=== PATIENT | female | born 1935 | race Caucasian/White ===

== ENCOUNTER → 2017-01-05 | Outpatient (CLI) | payer MEDICARE ==
--- NOTE | 2017-01-08 11:19 | MM ---
Reason for exam: additional evaluation requested from prior study. Last mammogram was performed 1 year ago. History: Patient is postmenopausal and has history of breast cancer at age 78. Family history of breast cancer in maternal aunt at age 60. Malignant MG pre op needle loc LT of the left breast, June 05, 2014. Malignant US biopsy breast VAD LT of the left breast, May 24, 2014. Taking antineoplastic for 5 months. Physical Findings: Nurse did not find any significant physical abnormalities on exam. MG Diagnostic Mammo w CAD MARILYN Bilateral CC and MLO view(s) were taken. Prior study comparison: January 03, 2016, bilateral MG 3d diag mammo w/cad MARILYN. January 01, 2015, bilateral MG diagnostic mammo w CAD MARILYN. May 24, 2014, left breast MG diagnostic mammo LT wo CAD. There are scattered fibroglandular densities. Post surgical and post therapy changes in left breast. Nodularity left MLO view represents nipple. These results were verbally communicated with the patient and result sheet given to the patient on 01/05/17. ASSESSMENT: Benign, BI-RAD 2 RECOMMENDATION: Follow-up diagnostic mammogram of both breasts in 1 year.
== END | disposition home or self-care (01) ==
LOC: RADMAMWWP 10:13
PROVIDERS: ATTEND Radiology Diagnostic Radiology
DX: C50.912 Malignant neoplasm of unspecified site of left female breast (principal)

== ENCOUNTER → 2017-07-08 | Outpatient (CLI) | payer MEDICARE ==
--- NOTE | 2017-07-08 10:51 | BD ---
EXAMINATION TYPE: MG DEXA axial skeleton. DATE OF EXAM: 07/08/2017 Comparison: DEXA bone scan 07/13/2015 CLINICAL HISTORY: Height: 62 inches Weight: 141 FRAX RISK QUESTIONS: Alcohol (3 or more units per day): no Family History (Parent hip fracture): no Glucocorticoids (More than 3mos): no (Ex: prednisone, prednisolone, methylprednisolone, dexamethasone, and hydrocortisone). History of Fracture in Adulthood: yes, September 2016 Secondary Osteoporosis: 1. Type 1 Diabetes: no 2. Hyperthyroidism: no 3. Menopause before 45: no 4. Malnutrition: no 5. Chronic liver disease: no Rheumatoid Arthritis: no Current Tobacco Use: no RISK FACTORS HISTORY OF: Family History of Osteoporosis: yes Active: yes Diet low in dairy products/other sources of calcium: somewhat...servings of cheese several times a w [place] Postmenopausal woman: yes Take estrogen and/or progesterone medications: no Lost more than 2 inches in height since high school: no Frequent falls: no Poor Health: no Hyperparathyroidism: no Adrenal Insufficiency: no MEDICATIONS: Prednisone or other steroids: no Thyroid Medications:no Osteoporosis Medications: yes Which medication: Prolia How Long: about one year Additional Medications: blood pressure , Metformin, Arimidex Additional History: breast CA age 78, diabetic, ankle pain EXAM MEASUREMENTS: Bone mineral densitometry was performed using the Vecast System. Bone mineral density as measured about the Lumbar spine is: ----- L1-L4(G/cm2): 0.967 T Score Values are as follows: ----- L2: -2.0 ----- L3: -1.9 ----- L4: -2.5 ----- L1-L4: -1.8 Bone mineral density has: Increased 2.5% since study of: 01/03/2016 Bone mineral density about the R hip (g/cm2): 0.900 Bone mineral density about the L hip (g/cm2): 0.888 T Score values are as follows: -----R Neck: -1.0 -----L Neck: -1.1 -----R Total: -0.8 -----L Total: -0.2 Bone mineral density has: Decreased -0.7% since study of: 01/03/2016 IMPRESSION: Osteopenia (T Score between -2.5 and -1 as noted by T score values in the low back and femoral neck l evel left hip. Bone density fairly stable from most recent prior. There remains slightly increased risk of fracture and the patient may be considered for treatment. Re-Screen 2-5 years. NOTE: T-SCORE=SD OF THE YOUNG ADULT MEAN.
== END | disposition home or self-care (01) ==
LOC: RADBDWWP 09:52
PROVIDERS: ATTEND Internal Medicine Hematology & Oncology
DX: C50.512 Malignant neoplasm of lower-outer quadrant of left female breast (principal); M85.89 Other specified disorders of bone density and structure, multiple sites
CPT/HCPCS: 77080

== ENCOUNTER → 2018-01-07 | Outpatient (CLI) | payer MEDICARE ==
--- NOTE | 2018-01-07 12:02 | MM ---
Reason for exam: additional evaluation requested from prior study. Last mammogram was performed 1 year ago. History: Patient is postmenopausal and has history of breast cancer at age 78. Family history of breast cancer in maternal aunt at age 60. Malignant MG pre op needle loc LT of the left breast, June 05, 2014. Malignant US biopsy breast VAD LT of the left breast, May 24, 2014. Taking antineoplastic for 5 months. Physical Findings: Nurse did not find any significant physical abnormalities on exam. MG 3D Diag Mammo W/Cad MARILYN Bilateral CC and MLO view(s) were taken. Prior study comparison: January 05, 2017, bilateral MG diagnostic mammo w CAD MARILYN. January 03, 2016, bilateral MG 3d diag mammo w/cad MARILYN. There are scattered fibroglandular densities. Finding #1: Architectural distortion in the upper outer quadrant, posterior position of the left breast. Finding #2: There are typically benign vascular, round calcifications in both breasts. There is no discrete abnormality. These results were verbally communicated with the patient and result sheet given to the patient on 01/07/18. ASSESSMENT: Benign, BI-RAD 2 RECOMMENDATION: Follow-up diagnostic mammogram of both breasts in 1 year.
== END | disposition home or self-care (01) ==
LOC: RADMAMWWP 10:17
PROVIDERS: ATTEND Radiology Diagnostic Radiology
DX: C50.912 Malignant neoplasm of unspecified site of left female breast (principal)
CPT/HCPCS: 77066; G0279; 77062

== ENCOUNTER → 2018-07-09 | Outpatient (CLI) | payer MEDICARE ==
--- NOTE | 2018-07-09 14:19 | BD ---
EXAMINATION TYPE: Axial Bone Density DATE OF EXAM: 07/09/2018 COMPARISON: Prior DEXA bone scan July 08, 2017 CLINICAL HISTORY: Postmenopausal female with history of breast cancer Height: 62 Weight: 146.3 FRAX RISK QUESTIONS: Alcohol (3 or more units per day): no Family History (Parent hip fracture): no Glucocorticoids (More than 3mos): no (Ex: prednisone, prednisolone, methylprednisolone, dexamethasone, and hydrocortisone). History of Fracture in Adulthood: yes Secondary Osteoporosis: 1. Type 1 Diabetes: no 2. Hyperthyroidism: no 3. Menopause before 45: marvel 4. Malnutrition: no 5. Chronic liver disease: no Rheumatoid Arthritis: no Current Tobacco Use: no RISK FACTORS HISTORY OF: Family History of Osteoporosis: no Active: yes Diet low in dairy products/other sources of calcium: no Postmenopausal woman: around age 51 Lost more than 2 inches in height since high school: no MEDICATIONS: Lipitor, Prilosec, Arimidex, lisinopril, xanax, metoprolol, metformin, Osteoporosis Medications: Prolia How Lon years Additional History: EXAM MEASUREMENTS: Bone mineral densitometry was performed using the Poynt System. Bone mineral density as measured about the Lumbar spine is: ----- L1-L4(G/cm2): 0.980 T Score Values are as follows: ----- L2: -1.3 ----- L3: -1.9 ----- L4: -2.1 ----- L1-L4: -1.7 Bone mineral density has: increased 4.0 % since study of: 07.08.2017 Bone mineral density about the R hip (g/cm2): 0.896 Bone mineral density about the L hip (g/cm2): 0.959 T Score values are as follows: -----R Neck: -1.0 -----L Neck: -0.6 -----R Total: -0.5 -----L Total: 0.2 Bone mineral density has: increased 4.9 % since study of: 07.08.2017 IMPRESSION: Osteopenia (T Score between -2.5 and -1) remains present. Bone density is increased from prior. There remains slightly increased risk of fracture and the patient may be considered for treatment. Re-Screen 2-5 years. NOTE: T-SCORE=SD OF THE YOUNG ADULT MEAN.
== END ==
LOC: RADBDWWP 12:21
PROVIDERS: ATTEND Internal Medicine Hematology & Oncology
DX: M85.88 Other specified disorders of bone density and structure, other site (principal); C50.512 Malignant neoplasm of lower-outer quadrant of left female breast
CPT/HCPCS: 77080

== ENCOUNTER → 2019-01-03 | Outpatient (CLI) | payer MEDICARE ==
--- NOTE | 2019-01-03 11:53 | MM ---
Reason for exam: additional evaluation requested from prior study. Last mammogram was performed 1 year ago. History: Patient is postmenopausal and has history of breast cancer at age 78. Family history of breast cancer in maternal aunt at age 60. Malignant MG pre op needle loc LT of the left breast, June 05, 2014. Malignant US biopsy breast VAD LT of the left breast, May 24, 2014. Lumpectomy of the left breast, 2013. Radiation therapy of the left breast, 2013. Taking antineoplastic for 5 years. Physical Findings: Nurse did not find any significant physical abnormalities on exam. MG 3D Diag Mammo W/Cad MARILYN Bilateral CC and MLO view(s) were taken. Prior study comparison: January 07, 2018, bilateral MG 3d diag mammo w/cad MARILYN. January 05, 2017, bilateral MG diagnostic mammo w CAD MARILYN. There are scattered fibroglandular densities. Post surgical and post therapy changes left breast. No significant new findings when compared with previous films. These results were verbally communicated with the patient and result sheet given to the patient on 01/03/19. ASSESSMENT: Benign, BI-RAD 2 RECOMMENDATION: Routine screening mammogram of both breasts in 1 year.
== END | disposition home or self-care (01) ==
LOC: RADMAMWWP 10:27
PROVIDERS: ATTEND Radiology Diagnostic Radiology
DX: C50.512 Malignant neoplasm of lower-outer quadrant of left female breast (principal)
CPT/HCPCS: 77066; G0279; 77062

== ENCOUNTER → 2020-04-19 | Outpatient (CLI) | payer MEDICARE ==
--- NOTE | 2020-04-19 11:46 | MM ---
Reason for exam: additional evaluation requested from prior study. Last mammogram was performed 1 year and 3 months ago. History: Patient is postmenopausal and has history of breast cancer at age 78. Family history of breast cancer in maternal aunt at age 60. Malignant MG pre op needle loc LT of the left breast, June 05, 2014. Malignant US biopsy breast VAD LT of the left breast, May 24, 2014. Lumpectomy of the left breast, 2013. Radiation therapy of the left breast, 2013. Taking antineoplastic for 5 years. Physical Findings: Nurse did not find any significant physical abnormalities on exam. MG 3D Diag Mammo W/Cad MARILYN Bilateral CC and MLO view(s) were taken. Prior study comparison: January 03, 2019, bilateral MG 3d diag mammo w/cad MARILYN. January 07, 2018, bilateral MG 3d diag mammo w/cad MARILYN. There are scattered fibroglandular densities. Redemonstrated post surgical and post therapy changes left breast. No significant new findings when compared with previous films. These results were verbally communicated with the patient and result sheet given to the patient on 04/19/20. ASSESSMENT: Benign, BI-RAD 2 RECOMMENDATION: Routine screening mammogram of both breasts in 1 year.
== END | disposition home or self-care (01) ==
LOC: RADMAMWWP 10:43
PROVIDERS: ATTEND Internal Medicine Hematology & Oncology
DX: Z08 Encounter for follow-up examination after completed treatment for malignant neoplasm (principal); Z85.3 Personal history of malignant neoplasm of breast
CPT/HCPCS: 77066; G0279; 77062

== ENCOUNTER → 2020-07-10 | Outpatient (CLI) | payer MEDICARE ==
--- NOTE | 2020-07-10 14:17 | BD ---
EXAMINATION TYPE: Axial Bone Density DATE OF EXAM: 07/10/2020 COMPARISON: 07/08/2017 CLINICAL HISTORY: Height: 61.5 IN Weight: 139 LBS FRAX RISK QUESTIONS: History of Fracture in Adulthood: RT ANKLE FX AGE 80 RISK FACTORS HISTORY OF: Active: YES Postmenopausal woman: PARTIAL HYST AGE 51 MEDICATIONS: Osteoporosis Medications: NOT NOW Which medication: Prolia How Long: TOOK FOR 5 YEARS. STOPPED IN 2019 Additional Medications: VIT E, Additional History: BREAST CANCER WITH RADIATION EXAM MEASUREMENTS: Bone mineral densitometry was performed using the HipSnip System. Bone mineral density as measured about the Lumbar spine is: ----- L1-L4(G/cm2): 0.991 T Score Values are as follows: ----- L2: -1.1 ----- L3: -1.5 ----- L4: -2.4 ----- L1-L4: -1.6 Bone mineral density has: Increased 5.3% since study of: 07/08/2017 Bone mineral density about the R hip (g/cm2): 0.845 Bone mineral density about the L hip (g/cm2): 0.897 T Score values are as follows: -----R Neck: -1.4 -----L Neck: -1.0 -----R Total: -0.7 -----L Total: -0.1 Bone mineral density has: Increased 1.5% since study of: 07/08/2017 IMPRESSION: Osteopenia (T Score between -2.5 and -1). There is slightly increased risk of fracture and the patient may be considered for treatment. Re-Screen 2-5 years. NOTE: T-SCORE=SD OF THE YOUNG ADULT MEAN.
== END | disposition home or self-care (01) ==
LOC: RADBDWWP 10:35
PROVIDERS: ATTEND Internal Medicine Hematology & Oncology
DX: M85.88 Other specified disorders of bone density and structure, other site (principal); M89.9 Disorder of bone, unspecified
CPT/HCPCS: 77080

== ENCOUNTER → 2021-11-01 | Outpatient (CLI) | payer MEDICARE ==
--- NOTE | 2021-11-05 08:29 | MM ---
Reason for exam: screening (asymptomatic). Last mammogram was performed 1 year and 6 months ago. History: Patient is postmenopausal and has history of breast cancer at age 78. Family history of breast cancer in maternal aunt at age 60. Malignant MG pre op needle loc LT of the left breast, June 05, 2014. Malignant US biopsy breast VAD LT of the left breast, May 24, 2014. Lumpectomy of the left breast, 2013. Radiation therapy of the left breast, 2013. Taking antineoplastic for 5 years. Physical Findings: A clinical breast exam by your physician is recommended on an annual basis and results should be correlated with mammographic findings. MG 3D Screening Mammo W/Cad Bilateral CC and MLO view(s) were taken. XCCL view(s) were taken of the left breast. Prior study comparison: April 19, 2020, bilateral MG 3d diag mammo w/cad MARILYN. January 03, 2019, bilateral MG 3d diag mammo w/cad MARILYN. There are scattered fibroglandular densities. Redemonstrated post surgical change left breast. New grouped calcifications central right breast, magnification views recommended. ASSESSMENT: Incomplete: need additional imaging evaluation, BI-RAD 0 RECOMMENDATION: Special view mammogram of the right breast. (magnification) [facility] will attempt to contact patient to return for supplemental views.
== END | disposition home or self-care (01) ==
LOC: RADMAMWWP 13:38
PROVIDERS: ATTEND Internal Medicine Hematology & Oncology
DX: Z12.31 Encounter for screening mammogram for malignant neoplasm of breast (principal); Z78.0 Asymptomatic menopausal state; Z80.3 Family history of malignant neoplasm of breast; Z85.3 Personal history of malignant neoplasm of breast
CPT/HCPCS: 77063; 77067

== ENCOUNTER → 2021-11-08 | Outpatient (CLI) | payer MEDICARE ==
--- NOTE | 2021-11-13 10:16 | MM ---
Reason for exam: additional evaluation requested from abnormal screening. Last mammogram was performed less than 1 month ago. History: Patient is postmenopausal and has history of breast cancer at age 78. Family history of breast cancer in maternal aunt at age 60. Malignant MG pre op needle loc LT of the left breast, June 05, 2014. Malignant US biopsy breast VAD LT of the left breast, May 24, 2014. Lumpectomy of the left breast, 2013. Radiation therapy of the left breast, 2013. Taking antineoplastic for 5 years. Physical Findings: A clinical breast exam by your physician is recommended on an annual basis and results should be correlated with mammographic findings. MG 3D Work Up W/Cad RT CC with magnification, LM with magnification, and LM view(s) were taken of the right breast. Prior study comparison: November 01, 2021, bilateral MG 3d screening mammo w/cad. April 19, 2020, bilateral MG 3d diag mammo w/cad MARILYN. January 03, 2019, bilateral MG 3d diag mammo w/cad MARILYN. Finding: There is a 1.5cm heterogeneous, grouped/clustered calcifications in the upper quadrant, anterior position middle of the right breast. New finding since April 19, 2020. ASSESSMENT: Suspicious, BI-RAD 4 RECOMMENDATION: Stereotactic core biopsy of both breasts. Called Dr. Alicea's office with mammographic findings and has scheduled an appointment for the patient for 11/28/21 at 7:[address] Cabrera. Biopsy scheduled for 11/28/21 at 8:00. PRELIMINARY REPORT CALLED AND FAXED TO DR. CABRERA ON 11/13/21.
== END | disposition home or self-care (01) ==
LOC: RADMAMWWP 13:33
PROVIDERS: ATTEND Internal Medicine Hematology & Oncology
DX: R92.1 Mammographic calcification found on diagnostic imaging of breast (principal); Z85.3 Personal history of malignant neoplasm of breast; Z80.3 Family history of malignant neoplasm of breast; Z78.0 Asymptomatic menopausal state
CPT/HCPCS: 77065; G0279; 77061

== ENCOUNTER → 2021-11-28 | Day surgery (SDC) | payer MEDICARE ==
[2021-11-28 07:42] VITALS: RESP 16
[2021-11-28 08:58] VITALS: BP 119/72; PULSE 83; TEMP 98.6
--- NOTE | 2021-11-28 14:10 | MM ---
The patient is an 86-year-old white female seen with her daughter; the patient on routine screening mammogram was noted to have 1.5 cm area of calcifications in the upper inner quadrant of the right breast. Stereotactic core biopsy was recommended. Risks and benefits of the procedure as well as alternatives were discussed with the patient and her daughter. Risks include but are not limited to bleeding, infection, reaction to the anesthetic. Alternatives such as watchful waiting or resection in the operating room were discussed but not recommended. They understood and wished to proceed. The patient was taken to the stereotactic core biopsy room. She was positioned prone on the lo-rad table. A CC from above approach was utilized. A aquatic director film was obtained. The calcifications of concern were identified. These were targeted. The breast was prepped using Betadine. 20 mL of 1% lidocaine were used to anesthetize the area of concern. A 9-gauge vacuum-assisted core rotating biopsy needle was driven to the correct coordinates. A prefire film was obtained. The needle was noted to be in the correct location. The needle was fired. Post fire film was obtained which showed the needle to be in the correct location. 13 core specimens were obtained. Radiograph of the specimen revealed the calcifications of concern had been adequately sampled. A secure julian top hat clip was placed. The clip appeared to be in the correct location. The patient tolerated procedure in stable condition. A post stereotactic core biopsy radiograph revealed the clip to be in the correct location. [facility] CENTERDavid
== END ==
LOC: RADMAMWWP 07:12
PROVIDERS: ATTEND Surgery
DX: D05.11 Intraductal carcinoma in situ of right breast (principal)
CPT/HCPCS: 19081; 88305; 88342; 88341; A4648; J2001

== ENCOUNTER → 2021-12-05 | Outpatient (CLI) | payer MEDICARE ==
[2021-12-05 09:02] VITALS: BP 97/62; PULSE 104; RESP 18; TEMP 97.8
--- NOTE | 2021-12-05 09:35 | P.PN ---
Subjective Progress Note Date: 12/05/21 Principal diagnosis: right breast DCIS Pearl is an 86 year old white female seen in consultation for DR. Alicea with an abnormal right breast mammogram. She underwent a lumpectomy about 7 years ago for what she believes was a stage I invasive ductal carcinoma. She was treated with radiation therapy and completed a five-year course of anti- hormone therapy. She does not feel any lumps masses or nodules of concern in either breast at this time. She had a routine mammogram performed on which revealed a 1.5 cm heterogeneous area of grouped/clustered calcifications in the upper quadrant anterior position of the right breast. She had not had mammograms for several years secondary to COVID. hormones: none BCP: none caffiene: none nicotine: stopped 33 years ago, used to smoke 1 PPD for about 20 years The patient on 11-28-21 underwent a right breast stereotactic core biopsy. This was positive for DCIS high-grade. The lesion is approximately 2 cm in size. At had a long discussion with the patient and her daughter regarding treatment options. The patient would like to have a lumpectomy. We have discussed sentinel node biopsy and secondary to the high grade of the lesion and the size of the tumor she would like to have a sentinel node biopsy possible axillary node dissection performed. Family History: patient: left breast cancer materanl aunt: breast cancer Hormonal History: menarche: 14 , breast fed: no, age at first : 22 menopause: 51 Surgical History: heart valve replacement 2013 left breast lumpectomy 2013 carotid stint (eliquis and plavix) hysterectomy no cancer, left ovaries Medical History: kidney stones ischemic colitis COPD Edge's esophagus Social History: nicotine: stopped 33 years ago alcohol: none drugs:none - Constitutional Constitutional: Denies chills, Denies fever - EENT Comment: cataract surgery Eyes: denies blurred vision, denies pain Ears: deny: decreased hearing, tinnitus Ears, nose, mouth and throat: Denies headache, Denies sore throat - Breasts Breasts: bilateral: as per HPI - Cardiovascular Cardiovascular: Reports as per HPI - Respiratory Comment: COPD - Gastrointestinal Comment: ischemic colitis Gastrointestinal: Reports as per HPI - Genitourinary (Female) Genitourinary: Reports kidney stones - Menstruation Menstruation: Reports post hysterectomy - Musculoskeletal Musculoskeletal: Denies myalgias - Integumentary Integumentary: Denies pruritus, Denies rash - Neurological Neurological: Denies numbness, Denies weakness - Psychiatric Psychiatric: Denies anxiety, Denies depression - Endocrine Endocrine: Denies fatigue, Denies weight change - Hematologic/Lymphatic Comment: eliquis, plavix Hematologic/Lymphatic: Reports as per HPI - Allergic/Immunologic Allergic/Immunologic: Reports as per HPI Objective - Vital Signs Vital signs: Vital Signs Temp 97.8 F 12/05/21 08:59 Pulse 104 H 12/05/21 08:59 Resp 18 12/05/21 08:59 BP 97/62 12/05/21 08:59 Pulse Ox 96 12/05/21 08:59 Intake & Output 12/04/21 12/05/21 12/05/21 18:59 06:59 18:59 Weight 61.235 kg - Constitutional General appearance: Present: cooperative - EENT ENT: Present: hearing grossly normal - Neck Neck: Present: normal ROM - Respiratory Respiratory: bilateral: CTA - Cardiovascular Heart sounds: normal: S1, S2 - Integumentary Integumentary Comment(s): mild echymosis and hematoma at biopsy site - Musculoskeletal Musculoskeletal: Present: gait normal - Psychiatric Psychiatric: Present: A&O x's 3, appropriate affect, intact judgment & insight Assessment and Plan Assessment: Impression: heart valve replacement 2012 left breast lumpectomy 2014 carotid stint (eliquis and plavix) hysterectomy no cancer, left ovaries Medical History: kidney stones 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 Castro Clearance from cardiology recommended per Dr. Matthew Avelar as per cardiology/Dr. Wong Risk and benefits of the procedures are discussed with the patient and her daughter. Risks include but are not limited to bleeding, infection, reaction to the anesthetic. If the margins were to be positive and further resection may be needed. If the sentinel node were to be highly suspicious and found to be positive for cancer and axillary dissection were to be performed risks of lymphedema, injury to the thoracodorsal and long thoracic nerves, numbness of the inner arm are discussed. The possibility of injection of methylene blue was also discussed. Dr. Wong
== END ==
LOC: WWCWWP 08:41
PROVIDERS: ATTEND Surgery
DX: R92.8 Other abnormal and inconclusive findings on diagnostic imaging of breast (principal); Z98.890 Other specified postprocedural states; Z95.5 Presence of coronary angioplasty implant and graft; Z79.01 Long term (current) use of anticoagulants; Z87.891 Personal history of nicotine dependence; Z88.5 Allergy status to narcotic agent; Z88.8 Allergy status to other drugs, medicaments and biological substances

== ENCOUNTER → 2021-12-24 | Day surgery (SDC) | payer MEDICARE ==
[2021-12-20 13:46] VITALS: BMI 25.2
[~2021-12-24] MED LIST: ALPRAZolam 0.25 MG TAB ONE; DEXAMETHASONE SOD PHOSPHATE 4 MG/ML 1 ML VIAL IV ONE; HEPARIN SODIUM,PORCINE/PF 5,000 UNIT/0.5 ML SYRINGE SQ PRN; HYDROmorphone 0.5 MG/0.5 ML SYRINGE IVP PRN; LACTATED RINGERS 1,000 ML IV ONE; LACTATED RINGERS 1,000 ML IV SCH; LIDOCAINE 1% (10MG/ML) FOR IV START INTRADERMA PRN; LIDOCAINE 1% INJ 10MG/ML (20 ML MDV) SQ ONE; LIDOCAINE 2% INJ 20 MG/ML (2 ML VIAL) ONE; METOCLOPRAMIDE 5 MG/ML 2 ML VIAL IVP PRN; MIDAZOLAM 2 MG/2 ML VIAL IV PRN; ONDANSETRON 4 MG/2 ML VIAL IVP PRN; PROPOFOL 10 MG/ML 20 ML VIAL IV ONE; Pre Op ABX Message 1 EACH MISC MISCELLANE ONE; SODIUM CHLORIDE 0.9% 100 ML with ceFAZolin 2,000 MG IV ONE; SUCCINYLCHOLINE CHLORIDE 100 MG/5 ML SYR IV ONE; ePHEDrine 50 MG/ML 1 ML VIAL ONE; fentaNYL (PF) 50 MCG/ML 2 ML AMP ONE
[2021-12-24 08:34] LABS: Glucose,Whole Blood 102 mg/dL (75-99)
--- NOTE | 2021-12-24 11:12 | P.OP ---
Date of Procedure: 12/24/21 Preoperative Diagnosis: DCIS right breast Postoperative Diagnosis: same Procedure(s) Performed: Right breast needle localization lumpectomy, onco-plastic tissue transfer 40 cm Anesthesia: CESARA Surgeon: Luli Bonner Estimated Blood Loss (ml): 5 IV fluids (ml): 400 Pathology: other (breast tissue) Condition: stable Disposition: same day Indications for Procedure: Biopsy-proven DCIS right breast Operative Findings: Fibrofatty breast tissue Description of Procedure: Following needle localization of the area of concern in the radiology suite the patient was brought to the operating room. Following induction of anesthesia the right breast was prepped and draped in sterile fashion. An incision was made and carried down to the THE needle. Surrounding tissue was excised. The cavity was 5 x 3 cm for 15 cm, the specimen was painted for orientation. Titanium clips were placed after assured that hemostasis was attained in the biopsy cavity. An inferior pillar which was 5 x 3 cm in size was developed. A superior pillar which was 5 x 2 cm in size was developed as well. The pillars were brought together to close the defect. They were secured with 3-0 Vicryl suture. The tissue mobalize was 40 cm2. The subcutaneous tissue was closed using 3-0 Vicryl suture. The skin was closed using 4-0 Monocryl. Steri-Strips were applied. 10 mL of 1% lidocaine was injected into the area of the incision. The patient tolerated the procedure in stable condition. Radiograph of the specimen revealed the area of concern about removed. All instrument and sponge counts were correct at the end of the case.
--- NOTE | 2021-12-24 11:13 | P.PN ---
Progress Note - Text Progress Note Date: 12/24/21 This is an addendum to the history and physical. The patient is not going to have a sentinel node injection or sentinel node biopsy. We have discussed this and the patient understands and although she initially wished this to be done after further explanation she canceled this portion of the procedure.
--- NOTE | 2021-12-24 11:17 | P.DS ---
Providers Attending physician: Luli Bonner Primary care physician: Alban Wong Plan - Discharge Summary Discharge Rx Participant: No New Discharge Prescriptions: No Action Cholecalciferol [Vitamin D3] 4,000 unit PO DAILY ALPRAZolam [Xanax] 12.5 mg PO TID PRN PRN Reason: Anxiety Clopidogrel [Plavix] 75 mg PO DAILY Omeprazole 20 mg PO DAILY Montelukast [Singulair] 10 mg PO HS Dicyclomine [Bentyl] 20 mg PO BID Atorvastatin [Lipitor] 40 mg PO HS lisinopriL [Zestril] 5 mg PO BID Apixaban [Eliquis] 2.5 mg PO BID Ferrous Sulfate [Feosol] 325 mg PO DAILY Discharge Medication List ALPRAZolam [Xanax] 12.5 mg PO TID PRN 06/02/14 [History] Cholecalciferol [Vitamin D3] 4,000 unit PO DAILY 06/02/14 [History] Apixaban [Eliquis] 2.5 mg PO BID 11/12/21 [History] Atorvastatin [Lipitor] 40 mg PO HS 11/12/21 [History] Clopidogrel [Plavix] 75 mg PO DAILY 11/12/21 [History] Dicyclomine [Bentyl] 20 mg PO BID 11/12/21 [History] Montelukast [Singulair] 10 mg PO HS 11/12/21 [History] lisinopriL [Zestril] 5 mg PO BID 11/12/21 [History] Ferrous Sulfate [Feosol] 325 mg PO DAILY 12/20/21 [History] Omeprazole 20 mg PO DAILY 12/20/21 [History] Follow up Appointment(s)/Referral(s): Luli Bonner MD [STAFF PHYSICIAN] - 01/03/22 12:00 pm Activity/Diet/Wound Care/Special Instructions: wear bra at all times do not drive may shower after 48 hours Discharge Disposition: HOME SELF-CARE
--- NOTE | 2021-12-24 11:19 | P.NAPBC ---
NAPBC Queries - NAPBC Queries Was patient's case review presented at [facility] tumor board? If no, comment.: Yes Was patient's pathology reviewed at [facility]? If no, comment.: Yes Was breast conservation surgery offered? If no, comment.: Yes Was sentinel node biopsy offered? If no, comment.: Yes (did not do seconodary to DCIS and age of patient) Was diagnosis confirmed by percutaneous core biopsy? If no, comment.: Yes Is patient mastectomy patient?: No Was a preop referral to reconstructive surgeon offered?: No Clinical Stage: stage 0
--- NOTE | 2021-12-24 11:39 | MM ---
EXAMINATION TYPE: MG pre op needle loc RT, MG surgical specimen RT DATE OF EXAM: 12/24/2021 COMPARISON: Prior stereotactic guided core biopsy November 28, 2021 and older studies CLINICAL HISTORY: Abnormal biopsy with high-grade DCIS TECHNIQUE: Needle localization with wire placement and surgical excision of area of concern in the ri t breast. FINDINGS: The procedure of needle localization with wire placement and than surgical excision was exp lained to the patient. Benefits, alternatives, and risks were discussed. An informed consent was th en obtained. The shortest pathway for procedure was chosen. Shortest pathway was medial approach. The overlying s kin was prepped and draped in usual sterile fashion. Lidocaine is used as anesthetic into the skin an d subcutaneous tissue up to the level of area of concern. A 5 cm needle was used. It was placed via a medial to lateral approach under mammographic guidance. Subsequent 90 degrees mammogram show the needle to be in satisfactory position relative to the targeted area. At this point, wire was placed and the needle was withdrawn. The wire was fixed to patient's skin. Images were marked for surgeon. The patient tolerated the procedure well without any immediate complication. The patient was kept in the radiology department for short stay after the procedure and then taken to surgery for surgical e xcision. Targeted biopsy clip and wire are identified in specimen mammogram. The patient was kept i hospital for short stay after the procedure and then discharged home in stable condition. IMPRESSION: Successful, uncomplicated needle localization with wire placement and surgical excision o f targeted biopsy clip in the right breast, full pathology results to follow.
[2021-12-24 11:58] VITALS: TEMP 97
[2021-12-24 12:48] VITALS: RESP 20
[2021-12-24 12:55] LABS: Glucose,Whole Blood 142 mg/dL (75-99)
[2021-12-24 13:06] VITALS: BP 181/78; PULSE 86
== END | disposition home or self-care (01) ==
LOC: OR 07:32
PROVIDERS: ATTEND Surgery
DX: D05.11 Intraductal carcinoma in situ of right breast (principal); Z79.01 Long term (current) use of anticoagulants; Z79.02 Long term (current) use of antithrombotics/antiplatelets; Z79.899 Other long term (current) drug therapy; I25.10 Atherosclerotic heart disease of native coronary artery without angina pectoris; I10 Essential (primary) hypertension; E78.5 Hyperlipidemia, unspecified; I48.91 Unspecified atrial fibrillation; Z86.73 Personal history of transient ischemic attack (TIA), and cerebral infarction without residual deficits; K21.9 Gastro-esophageal reflux disease without esophagitis; Z95.5 Presence of coronary angioplasty implant and graft; Z99.81 Dependence on supplemental oxygen
CPT/HCPCS: 19301; 14001; 88307; 76098; 19281; C1819; J1100; J2405; J0690; J2001 ×2; J3010; J0330; J2704; J1644

== ENCOUNTER → 2022-05-08 | Outpatient (CLI) | payer MEDICARE ==
[2022-05-08 10:43] VITALS: RESP 16
[2022-05-08 10:48] VITALS: BP 128/75; PULSE 64; TEMP 98.4
--- NOTE | 2022-05-08 11:00 | P.PN ---
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 Alicea with an abnormal right breast mammogram. Of importance is the fact she underwent a left breast lumpectomy about [address] Enamorado for what she believes was a stage I invasive ductal carcinoma. She was treated with radiation therapy and completed a five-year course of anti- hormone therapy. She does not feel any lumps masses or nodules of concern in either breast at this time. She had a routine mammogram performed on which revealed a 1.5 cm heterogeneous area of grouped/clustered calcifications in the upper quadrant anterior position of the right breast. She had not had mammograms for several years secondary to COVID. A right breast core biopsy was done which revealed DCIS on 11-28-21. She underwent a lumpectomy on 12-24-21, all margins were (-) She was ER-Pr-. A complaint of any new lumps masses or nodules of concern in either breast. She is due for a right breast mammogram at this time. hormones: none BCP: none caffiene: none nicotine: stopped 33 years ago, used to smoke 1 PPD for about 20 years Family History: patient: left breast cancer materanl aunt: breast cancer Hormonal History: menarche: 14 , breast fed: no, age at first : 22 menopause: 51 Surgical History: heart valve replacement 2012 left breast lumpectomy 2013 carotid stint (eliquis and plavix) hysterectomy no cancer, left ovaries Medical History: kidney stones ischemic colitis COPD Edge's esophagus Social History: nicotine: stopped 33 years ago alcohol: none drugs:none - Constitutional Constitutional: Denies chills, Denies fever - EENT Comment: cataract surgery Eyes: denies blurred vision, denies pain Ears: deny: decreased hearing, tinnitus Ears, nose, mouth and throat: Denies headache, Denies sore throat - Breasts Breasts: bilateral: as per HPI - Cardiovascular Cardiovascular: Reports as per HPI - Respiratory Comment: COPD - Gastrointestinal Comment: ischemic colitis Gastrointestinal: Reports as per HPI - Genitourinary (Female) Genitourinary: Reports kidney stones - Menstruation Menstruation: Reports post hysterectomy - Musculoskeletal Musculoskeletal: Denies myalgias - Integumentary Integumentary: Denies pruritus, Denies rash - Neurological Neurological: Denies numbness, Denies weakness - Psychiatric Psychiatric: Denies anxiety, Denies depression - Endocrine Endocrine: Denies fatigue, Denies weight change - Hematologic/Lymphatic Comment: eliquis, plavix Hematologic/Lymphatic: Reports as per HPI - Allergic/Immunologic Allergic/Immunologic: Reports as per HPI Past Medical History Past Medical History: Asthma, COPD, Diabetes Mellitus, GERD/Reflux, Hyperlipidemia, Hypertension Additional Past Medical History / Comment(s): HX OF ANEMIA, BARRETTS ESOPHAGUS. History of Any Multi-Drug Resistant Organisms: None Reported Past Surgical History: Heart Catheterization, Hysterectomy Additional Past Surgical History / Comment(s): PARTIAL HYSTERECTOMY, AORTIC HEART VALVE (JUL 2013) Past Anesthesia/Blood Transfusion Reactions: No Reported Reaction Past Psychological History: No Psychological Hx Reported Past Alcohol Use History: None Reported Past Drug Use History: None Reported Medications and Allergies Home Medications Medication Instructions Recorded Confirmed Type ALPRAZolam [Xanax] 0.25 mg PO HS PRN 06/02/14 11/28/21 History Atorvastatin [Lipitor] 20 mg PO HS 06/02/14 11/28/21 History Cholecalciferol [Vitamin D3] 2,000 unit PO DAILY 06/02/14 11/28/21 History Iron(Unknown Dose) 325 mg PO DAILY 06/02/14 11/28/21 History Apixaban [Eliquis] 2.5 mg PO BID 11/12/21 11/28/21 History Atorvastatin [Lipitor] 40 mg PO HS 11/12/21 11/28/21 History Clopidogrel [Plavix] 75 mg PO DAILY 11/12/21 11/28/21 History Dicyclomine [Bentyl] 20 mg PO BID 11/12/21 11/28/21 History Montelukast [Singulair] 10 mg PO DAILY 11/12/21 11/28/21 History Pantoprazole [Protonix] 40 mg PO DAILY 11/12/21 11/28/21 History lisinopriL [Zestril] 5 mg PO BID 11/12/21 11/28/21 History Allergies Allergy/AdvReac Type Severity Reaction Status Date / Time alcohol Allergy Severe Swelling Verified 11/28/21 07:27 of throat and lips morphine Allergy Unknown Passed Out Verified 11/28/21 07:27 Objective - Vital Signs Vital signs: Vital Signs Temp Pulse Resp 16 05/08/22 10:40 BP Pulse Ox FiO2 - Exam BMI: 24.7 - Constitutional General appearance: Present: cooperative - EENT Eyes: Present: EOMI ENT: Present: hearing grossly normal - Neck Neck: Present: normal ROM - Respiratory Respiratory: bilateral: CTA - Cardiovascular Rhythm: regular Heart sounds: normal: S1, S2 - Gastrointestinal General gastrointestinal: Present: soft - Integumentary Integumentary: Present: normal turgor - Musculoskeletal Musculoskeletal: Present: gait normal - Psychiatric Psychiatric: Present: A&O x's 3, appropriate affect, intact judgment & insight - Additional findings Additional findings: Breast Exam: BRA; 44C; asymmetry related to prior left breast lumpectomy Inspection: Asymmetry of the breast related to prior left breast lumpectomy Palpation: Right breast: Well-healed scar from prior lumpectomy, multiple positional exam fibrocystic changes no dominant masses or nodules of concern Right axilla: No adenopathy of concern Left breast: Postop and radiation changes, no dominant masses or nodules of concern Left axilla: No adenopathy of concern Assessment and Plan Assessment: Impression: kidney stones ischemic colitis COPD Edge's esophagus right breast DCIS no recurrence left breast stage I invasive ductal cancer no recurrence Plan: Bilateral mammogram October-2022 right breast mammogram at this time and follow up after this is done CC: Dr. Alban Wong
== END ==
LOC: WWCWWP 10:07
PROVIDERS: ATTEND Surgery
DX: Z08 Encounter for follow-up examination after completed treatment for malignant neoplasm (principal); Z85.3 Personal history of malignant neoplasm of breast; K22.70 Barrett's esophagus without dysplasia; K55.9 Vascular disorder of intestine, unspecified; N20.0 Calculus of kidney; J44.9 Chronic obstructive pulmonary disease, unspecified; E11.9 Type 2 diabetes mellitus without complications; E78.5 Hyperlipidemia, unspecified; I10 Essential (primary) hypertension; K21.9 Gastro-esophageal reflux disease without esophagitis; Z79.899 Other long term (current) drug therapy; Z87.891 Personal history of nicotine dependence; Z88.5 Allergy status to narcotic agent; Z88.8 Allergy status to other drugs, medicaments and biological substances

== ENCOUNTER → 2022-05-21 | Outpatient (CLI) | payer MEDICARE ==
--- NOTE | 2022-05-21 13:30 | MM ---
Reason for Exam: Follow-up at short interval from prior study. Last screening mammogram was performed 6 month(s) ago. Patient History: Menarche at age 13. First Full-Term at age 22. Hysterectomy at age 62. Postmenopausal. Breast cancer, right, age 86. Breast cancer, left, age 78. Previous chest radiation therapy at age 78. 12/24/2021, Lumpectomy on the Right side. 2013, Lumpectomy on the Left side. 12/24/2021, Malignant Core Biopsy on the right side. 11/28/2021, Malignant Core Biopsy on the right side. 06/05/2014, Malignant Core Biopsy on the left side. 05/24/2014, Malignant Core Biopsy on the left side. 2013, Radiation Therapy on the left side. Maternal aunt had breast cancer, age 60. Prior Study Comparison: 04/19/2020 Bilateral Diagnostic Mammogram, [facility]. 11/01/2021 Bilateral Screening Mammogram, [facility]. 11/08/2021 Right Diagnostic Mammogram, [facility]. Tissue Density: Right: The breast tissue is heterogeneously dense. This may lower the sensitivity of mammography. Findings: Analyzed By CAD. New distortion excisional changes in the right breast with surgical clips. Benign-appearing right axillary lymph nodes redemonstrated. Benign-appearing vascular calcification right breast redemonstrated. No suspicious new mass or group of microcalcification within the right breast. Overall Assessment: Benign, BI-RAD 2 Management: Screening Mammogram of both breasts in 6 months. Back on schedule. Results were given to the patient verbally at the time of exam. Electronically signed and approved by: Yassine Pandey M.D.
== END | disposition home or self-care (01) ==
LOC: RADMAMWWP 12:38
PROVIDERS: ATTEND Surgery
DX: Z08 Encounter for follow-up examination after completed treatment for malignant neoplasm (principal); Z85.3 Personal history of malignant neoplasm of breast; Z80.3 Family history of malignant neoplasm of breast; R92.1 Mammographic calcification found on diagnostic imaging of breast; R92.8 Other abnormal and inconclusive findings on diagnostic imaging of breast
CPT/HCPCS: 77065; G0279; 77061

== ENCOUNTER → 2022-11-20 | Outpatient (CLI) | payer MEDICARE ==
--- NOTE | 2022-11-20 11:21 | P.PN ---
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 Alicea with an abnormal right breast mammogram. Of importance is the fact she underwent a left breast lumpectomy about [address] Enamorado for what she believes was a stage I invasive ductal carcinoma. She was treated with radiation therapy and completed a five-year course of anti- hormone therapy. She does not feel any lumps masses or nodules of concern in either breast at this time. She had a routine mammogram performed on which revealed a 1.5 cm heterogeneous area of grouped/clustered calcifications in the upper quadrant anterior position of the right breast. She had not had mammograms for several years secondary to COVID. A right breast core biopsy was done which revealed DCIS on 11-28-21. She underwent a lumpectomy on 12-24-21, all margins were (-) She was ER-Pr-. No new complaints of any lumps masses or nodules of concern in either breast. Bilateral mammogram on 11-03-22 BIR[facility] 2, personally reviewed. hormones: none BCP: none caffiene: none nicotine: stopped 33 years ago, used to smoke 1 PPD for about 20 years Family History: patient: left breast cancer materanl aunt: breast cancer Hormonal History: menarche: 14 , breast fed: no, age at first : 22 menopause: 51 Surgical History: heart valve replacement 2012 left breast lumpectomy 2013 carotid stint (eliquis and plavix) hysterectomy no cancer, left ovaries right breast lumpectomy Medical History: kidney stones ischemic colitis COPD Edge's esophagus Social History: nicotine: stopped 33 years ago alcohol: none drugs:none - Constitutional Constitutional: Denies chills, Denies fever - EENT Comment: cataract surgery Eyes: denies blurred vision, denies pain Ears: deny: decreased hearing, tinnitus Ears, nose, mouth and throat: Denies headache, Denies sore throat - Breasts Breasts: bilateral: as per HPI - Cardiovascular Cardiovascular: Reports as per HPI - Respiratory Comment: COPD - Gastrointestinal Comment: ischemic colitis Gastrointestinal: Reports as per HPI - Genitourinary (Female) Genitourinary: Reports kidney stones - Menstruation Menstruation: Reports post hysterectomy - Musculoskeletal Musculoskeletal: Denies myalgias - Integumentary Integumentary: Denies pruritus, Denies rash - Neurological Neurological: Denies numbness, Denies weakness - Psychiatric Psychiatric: Denies anxiety, Denies depression - Endocrine Endocrine: Denies fatigue, Denies weight change - Hematologic/Lymphatic Comment: eliquis, plavix Hematologic/Lymphatic: Reports as per HPI - Allergic/Immunologic Allergic/Immunologic: Reports as per HPI Past Medical History Past Medical History: Asthma, COPD, Diabetes Mellitus, GERD/Reflux, Hyperlipidemia, Hypertension Additional Past Medical History / Comment(s): HX OF ANEMIA, BARRETTS ESOPHAGUS. History of Any Multi-Drug Resistant Organisms: None Reported Past Surgical History: Heart Catheterization, Hysterectomy Additional Past Surgical History / Comment(s): PARTIAL HYSTERECTOMY, AORTIC HEART VALVE (JUL 2013) Past Anesthesia/Blood Transfusion Reactions: No Reported Reaction Past Psychological History: No Psychological Hx Reported Past Alcohol Use History: None Reported Past Drug Use History: None Reported Medications and Allergies Home Medications Medication Instructions Recorded Confirmed Type ALPRAZolam [Xanax] 0.25 mg PO HS PRN 06/02/14 11/28/21 History Atorvastatin [Lipitor] 20 mg PO HS 06/02/14 11/28/21 History Cholecalciferol [Vitamin D3] 2,000 unit PO DAILY 06/02/14 11/28/21 History Iron(Unknown Dose) 325 mg PO DAILY 06/02/14 11/28/21 History Apixaban [Eliquis] 2.5 mg PO BID 11/12/21 11/28/21 History Atorvastatin [Lipitor] 40 mg PO HS 11/12/21 11/28/21 History Clopidogrel [Plavix] 75 mg PO DAILY 11/12/21 11/28/21 History Dicyclomine [Bentyl] 20 mg PO BID 11/12/21 11/28/21 History Montelukast [Singulair] 10 mg PO DAILY 11/12/21 11/28/21 History Pantoprazole [Protonix] 40 mg PO DAILY 11/12/21 11/28/21 History lisinopriL [Zestril] 5 mg PO BID 11/12/21 11/28/21 History Allergies Allergy/AdvReac Type Severity Reaction Status Date / Time alcohol Allergy Severe Swelling Verified 11/28/21 07:27 of throat and lips morphine Allergy Unknown Passed Out Verified 11/28/21 07:27 Objective - Constitutional General appearance: Present: cooperative - EENT Eyes: Present: EOMI ENT: Present: hearing grossly normal - Neck Neck: Present: normal ROM - Respiratory Respiratory: bilateral: CTA - Cardiovascular Rhythm: regular Heart sounds: normal: S1, S2 - Gastrointestinal General gastrointestinal: Present: soft - Integumentary Integumentary: Present: normal turgor - Musculoskeletal Musculoskeletal: Present: gait normal - Psychiatric Psychiatric: Present: A&O x's 3, appropriate affect, intact judgment & insight - Additional findings Additional findings: Breast Exam: BRA; 44C; asymmetry related to prior left breast lumpectomy Inspection: Asymmetry of the breast related to prior left breast lumpectomy Palpation: Right breast: Well-healed scar from prior lumpectomy, multiple positional exam fibrocystic changes no dominant masses or nodules of concern Right axilla: No adenopathy of concern Left breast: Postop and radiation changes, no dominant masses or nodules of concern Left axilla: No adenopathy of concern Assessment and Plan Assessment: Impression: kidney stones ischemic colitis COPD Edge's esophagus right breast DCIS no recurrence left breast stage I invasive ductal cancer no recurrence Plan: Bilateral mammogram 1 year follow up in 6 months for exam CC: Dr. Alban Wong
[2022-11-20 11:46] VITALS: BP 113/55; PULSE 70; RESP 18; TEMP 97.8
== END ==
LOC: WWCWWP 10:49
PROVIDERS: ATTEND Surgery
DX: C50.912 Malignant neoplasm of unspecified site of left female breast (principal); C50.911 Malignant neoplasm of unspecified site of right female breast; J44.9 Chronic obstructive pulmonary disease, unspecified; N20.0 Calculus of kidney; K22.70 Barrett's esophagus without dysplasia; K55.9 Vascular disorder of intestine, unspecified; K21.9 Gastro-esophageal reflux disease without esophagitis; I10 Essential (primary) hypertension; E78.5 Hyperlipidemia, unspecified; Z79.01 Long term (current) use of anticoagulants; Z88.5 Allergy status to narcotic agent; Z91.048 Other nonmedicinal substance allergy status; Z87.891 Personal history of nicotine dependence

== ENCOUNTER → 2023-11-05 | Outpatient (CLI) | payer MEDICARE ==
--- NOTE | 2023-11-05 16:20 | MM ---
Reason for Exam: Hx of breast cancer, conservation therapy. Last screening mammogram was performed 12 month(s) ago. Patient History: Menarche at age 13. First Full-Term at age 22. Hysterectomy at age 62. Postmenopausal. Breast cancer, right, age 86. Breast cancer, left, age 78. Previous chest radiation therapy at age 78. 12/24/2021, Lumpectomy on the Right side. 2013, Lumpectomy on the Left side. 12/24/2021, Malignant Core Biopsy on the right side. 11/28/2021, Malignant Core Biopsy on the right side. 06/05/2014, Malignant Core Biopsy on the left side. 05/24/2014, Malignant Core Biopsy on the left side. 2013, Radiation Therapy on the left side. Maternal aunt had breast cancer, age 60. Tissue Density: The breasts are heterogeneously dense, which may obscure small masses. Findings: Analyzed By CAD. Postsurgical and posttreatment change of both breasts. Chronic lateral subareolar nodular asymmetric density on the right. In the right breast, approximately 12 to 1:00 position located just behind the lumpectomy scar, there is a new group of heterogeneous microcalcifications for which tissue sampling is recommended. Otherwise, no significant change. Overall Assessment: Suspicious, BI-RAD 4 Management: Stereotactic Core Biopsy of the right breast. Electronically signed and approved by: Eulogio Hart M.D. Radiologist
== END | disposition home or self-care (01) ==
LOC: RADMAMWWP 15:36
PROVIDERS: ATTEND Surgery
DX: R92.333 Mammographic heterogeneous density, bilateral breasts (principal); R92.8 Other abnormal and inconclusive findings on diagnostic imaging of breast; Z78.0 Asymptomatic menopausal state; Z80.3 Family history of malignant neoplasm of breast
CPT/HCPCS: 77066; G0279; 77062

== ENCOUNTER → 2023-11-13 | Day surgery (SDC) | payer MEDICARE ==
[2023-11-13] MEDS: ALPRAZolam 0.25 MG TAB PO PRN (07:48)
[2023-11-13 08:19] VITALS: RESP 16
--- NOTE | 2023-11-13 08:23 | P.PN ---
Subjective Progress Note Date: 11/13/23 Principal diagnosis: abnormal right breast mammogram 11-13-23 Initialization Date: 05/22/23 15:38 Pearl is an 88-year-old white female who underwent a bilateral mammogram on 11-05-2023 this revealed postsurgical and posttreatment changes of both breast. She had chronic lateral subareolar nodular asymmetries on the right. In the right breast approximately 12 1 o'clock position located behind the lumpectomy scar there were new group of heterogeneous microcalcifications for which tissue sampling was recommended. Otherwise no changes of concern were noted. The patient underwent a left breast lumpectomy approximately [address] Winters. 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 She was treated with radiation therapy and completed a 5-year course of antihormone therapy. A right breast core biopsy was done which revealed DCIS on 11-28-2021. She underwent a lumpectomy on 12-24-2021. All margins were negative. She was ER negative [place] negative. Patient lost 20 pounds recently and on her last visit was complaining of wrin kles in her arms. She does not feel anything of concern in her breast. hormones: none BCP: none caffiene: none nicotine: stopped 33 years ago, used to smoke 1 PPD for about 20 years Family History: patient: left breast cancer materanl aunt: breast cancer Hormonal History: menarche: 14 , breast fed: no, age at first : 22 menopause: 51 Surgical History: heart valve replacement 2012 left breast lumpectomy 2013 carotid stint (eliquis and plavix) hysterectomy no cancer, left ovaries right breast lumpectomy Medical History: kidney stones ischemic colitis COPD Edge's esophagus Social History: nicotine: stopped 33 years ago alcohol: none drugs:none - Constitutional Constitutional: Denies chills, Denies fever - EENT Comment: cataract surgery Eyes: denies blurred vision, denies pain Ears: deny: decreased hearing, tinnitus Ears, nose, mouth and throat: Denies headache, Denies sore throat - Breasts Breasts: bilateral: as per HPI - Cardiovascular Cardiovascular: Reports as per HPI - Respiratory Comment: COPD - Gastrointestinal Comment: ischemic colitis Gastrointestinal: Reports as per HPI - Genitourinary (Female) Genitourinary: Reports kidney stones - Menstruation Menstruation: Reports post hysterectomy - Musculoskeletal Musculoskeletal: Denies myalgias - Integumentary Integumentary: Denies pruritus, Denies rash - Neurological Neurological: Denies numbness, Denies weakness - Psychiatric Psychiatric: Denies anxiety, Denies depression - Endocrine Endocrine: Denies fatigue, Denies weight change - Hematologic/Lymphatic Comment: eliquis, plavix Hematologic/Lymphatic: Reports as per HPI - Allergic/Immunologic Allergic/Immunologic: Reports as per HPI Past Medical History Past Medical History: Asthma, COPD, Diabetes Mellitus, GERD/Reflux, Hyperlipidemia, Hypertension Additional Past Medical History / Comment(s): HX OF ANEMIA, BARRETTS ESOPHAGUS. History of Any Multi-Drug Resistant Organisms: None Reported Past Surgical History: Heart Catheterization, Hysterectomy Additional Past Surgical History / Comment(s): PARTIAL HYSTERECTOMY, AORTIC HEART VALVE (JUL 2013) Past Anesthesia/Blood Transfusion Reactions: No Reported Reaction Past Psychological History: No Psychological Hx Reported Past Alcohol Use History: None Reported Past Drug Use History: None Reported Medications and Allergies Home Medications Medication Instructions Recorded Confirmed Type ALPRAZolam [Xanax] 0.25 mg PO HS PRN 06/02/14 11/28/21 History Atorvastatin [Lipitor] 20 mg PO HS 06/02/14 11/28/21 History Cholecalciferol [Vitamin D3] 2,000 unit PO DAILY 06/02/14 11/28/21 History Iron(Unknown Dose) 325 mg PO DAILY 06/02/14 11/28/21 History Apixaban [Eliquis] 2.5 mg PO BID 11/12/21 11/28/21 History Atorvastatin [Lipitor] 40 mg PO HS 11/12/21 11/28/21 History Clopidogrel [Plavix] 75 mg PO DAILY 11/12/21 11/28/21 History Dicyclomine [Bentyl] 20 mg PO BID 11/12/21 11/28/21 History Montelukast [Singulair] 10 mg PO DAILY 11/12/21 11/28/21 History Pantoprazole [Protonix] 40 mg PO DAILY 11/12/21 11/28/21 History lisinopriL [Zestril] 5 mg PO BID 11/12/21 11/28/21 History Allergies Allergy/AdvReac Type Severity Reaction Status Date / Time alcohol Allergy Severe Swelling Verified 11/28/21 07:27 of throat and lips morphine Allergy Unknown Passed Out Verified 11/28/21 07:27 Objective - Vital Signs Vital signs: Vital Signs Temp 97.5 F L 11/13/23 07:49 Pulse 70 11/13/23 07:49 Resp 16 11/13/23 07:49 BP 133/75 11/13/23 07:49 Pulse Ox FiO2 Intake & Output 11/12/23 11/13/23 11/13/23 18:59 06:59 18:59 Weight 54.431 kg - Constitutional General appearance: Present: cooperative - EENT Eyes: Present: EOMI - Neck Neck: Present: normal ROM - Respiratory Respiratory: bilateral: CTA - Cardiovascular Heart sounds: normal: S1, S2 - Integumentary Integumentary: Present: normal turgor - Psychiatric Psychiatric: Present: A&O x's 3, appropriate affect, intact judgment & insight - Additional findings Additional findings: Breast Exam: BRA; 44C; asymmetry related to prior left breast lumpectomy Inspection: Asymmetry of the breast related to prior left breast lumpectomy Palpation: Right breast: Well-healed scar from prior lumpectomy, multi-positional exam fibrocystic changes no dominant masses or nodules of concern Right axilla: No adenopathy of concern Left breast: Postop and radiation changes, no dominant masses or nodules of concern Left axilla: No adenopathy of concern Assessment and Plan Assessment: Impression: kidney stones ischemic colitis COPD Edge's esophagus right breast DCIS no recurrence left breast stage I invasive ductal cancer no recurrence Bilateral mammogram 11-05-2023/BI-RADS 4 microcalcifications of concern right breast, no lesions of concern left breast Plan: Right breast mammogram abnormal microcalcifications Stereotactic core biopsy recommended And benefits of the procedure discussed with the patient. Risk include but are not limited to bleeding, infection, reaction to the anesthetic. If the lesion cannot be targeted then needle local an open biopsy may be recommended. If the biopsy results are discordant then open biopsy may be recommended. The patient understands and wishes to proceed. CC: Dr. Alban Wong
[2023-11-13 10:08] VITALS: BP 130/69; PULSE 63; TEMP 98.1
--- NOTE | 2023-11-13 14:36 | P.PCN ---
Date of Procedure: 11/13/23 Preoperative Diagnosis: Microcalcifications of concern right breast Postoperative Diagnosis: Same Procedure(s) Performed: Right breast stereotactic core biopsy Anesthesia: local Surgeon: Luli Bonner Pathology: other (Right breast tissue with calcifications noted in specimen) Condition: stable Disposition: same day Indications for Procedure: Microcalcifications of concern noted right breast at the 12 to 1 o'clock position just behind lumpectomy scar Operative Findings: Radiograph of specimen reveals microcalcifications of concern Description of Procedure: The patient is an 88-year-old white female status post right breast lumpectomy for DCIS. The patient on a recent mammogram was noted to have microcalcifications of concern near the area of the lumpectomy site. Stereotactic core biopsy was recommended. The risk and benefits of the procedure were discussed with the patient. She understood and wished to proceed. The patient was brought to the stereotactic core biopsy room. She was positioned in the upright chair. A artist mannequin coloring film was obtained. The calcifications of concern were identified. The lesion was targeted. The breast was prepped using chlorhexidine. 20 cc of 1% lidocaine were used to anesthetize the area of concern. A 9 gauge vacuum-assisted core rotating biopsy petite needle was inserted into the area of concern. A prefire film was obtained. The needle was noted to be in the correct location. The needle was fired. The needle was noted to be in the correct location. The patient did move slightly. 24 core biopsy specimens were obtained. Radiograph of the specimen did not reveal the calcifications of concern. Therefore the lesion was retargeted. 6 cc of additional 1% lidocaine were used to further anesthetize the breast. A 9 gauge vacuum-assisted core rotating biopsy needle of the petite type was inserted into the breast. A prefire film was obtained. The needle was noted to be in the correct location. The needle was fired. A post fire film was obtained. The needle was noted to be in the correct location. 20 core biopsy specimens were obtained. Radiograph of the specimens revealed not only the calcifications but also the initial marker which had been placed. A new secure julian Top-Hat clip was placed. Radiograph revealed the clip to be in the correct location. The patient tolerated the procedure in stable condition. The specimen was sent to pathology. The patient will follow-up with Dr. Bales in 1 week. The patient has been on Eliquis. I have discussed this with the patient's daughter and she is going to restart this tomorrow. CC: Dr. Wong
== END ==
LOC: RADMAMWWP 07:31
PROVIDERS: ATTEND Surgery
DX: C50.911 Malignant neoplasm of unspecified site of right female breast (principal)
CPT/HCPCS: 19081; A4648; J2001; 88305; 88341; 88342

== ENCOUNTER → 2023-11-27 | Outpatient (CLI) | payer MEDICARE ==
--- NOTE | 2023-11-27 12:40 | P.PN ---
Subjective Progress Note Date: 11/27/23 Principal diagnosis: 11-27-23 Principal diagnosis: abnormal right breast mammogram Initialization Date: 05/22/23 15:38 Pearl is an 88-year-old white female who underwent a bilateral mammogram on 11-05-2023 this revealed postsurgical and posttreatment changes of both breast. She had chronic lateral subareolar nodular asymmetries on the right. In the right breast approximately 12 1 o'clock position located behind the lumpectomy scar there were new group of heterogeneous microcalcifications for which tissue sampling was recommended. Otherwise no changes of concern were noted. The patient underwent a left breast lumpectomy approximately [address] Winters. 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 She was treated with radiation therapy and completed a 5-year course of antihormone therapy. A right breast core biopsy was done which revealed DCIS on 11-28-2021. She underwent a lumpectomy on 12-24-2021. All margins were negative. She was ER negative [place] negative. Patient lost 20 pounds recently and on her last visit was complaining of wrinkles in her arms. She does not feel anything of concern in her breast. Stero biopsy done on 11-13-23 DCIS suspecious for microinvasion ER low (+) [place] (-) hormones: none BCP: none caffiene: none nicotine: stopped 33 years ago, used to smoke 1 PPD for about 20 years Family History: patient: left breast cancer materanl aunt: breast cancer Hormonal History: menarche: 14 , breast fed: no, age at first : 22 menopause: 51 Surgical History: heart valve replacement 2013 left breast lumpectomy 2014 carotid stint (eliquis and plavix) hysterectomy no cancer, left ovaries right breast lumpectomy Medical History: kidney stones ischemic colitis COPD Edge's esophagus Social History: nicotine: stopped 33 years ago alcohol: none drugs:none - Constitutional Constitutional: Denies chills, Denies fever - EENT Comment: cataract surgery Eyes: denies blurred vision, denies pain Ears: deny: decreased hearing, tinnitus Ears, nose, mouth and throat: Denies headache, Denies sore throat - Breasts Breasts: bilateral: as per HPI - Cardiovascular Cardiovascular: Reports as per HPI - Respiratory Comment: COPD - Gastrointestinal Comment: ischemic colitis Gastrointestinal: Reports as per HPI - Genitourinary (Female) Genitourinary: Reports kidney stones - Menstruation Menstruation: Reports post hysterectomy - Musculoskeletal Musculoskeletal: Denies myalgias - Integumentary Integumentary: Denies pruritus, Denies rash - Neurological Neurological: Denies numbness, Denies weakness - Psychiatric Psychiatric: Denies anxiety, Denies depression - Endocrine Endocrine: Denies fatigue, Denies weight change - Hematologic/Lymphatic Comment: eliquis, plavix Hematologic/Lymphatic: Reports as per HPI - Allergic/Immunologic Allergic/Immunologic: Reports as per HPI Past Medical History Past Medical History: Asthma, COPD, Diabetes Mellitus, GERD/Reflux, Hyperlipidemia, Hypertension Additional Past Medical History / Comment(s): HX OF ANEMIA, BARRETTS ESOPHAGUS. History of Any Multi-Drug Resistant Organisms: None Reported Past Surgical History: Heart Catheterization, Hysterectomy Additional Past Surgical History / Comment(s): PARTIAL HYSTERECTOMY, AORTIC HEART VALVE (JUL 2013) Past Anesthesia/Blood Transfusion Reactions: No Reported Reaction Past Psychological History: No Psychological Hx Reported Past Alcohol Use History: None Reported Past Drug Use History: None Reported Medications and Allergies Home Medications Medication Instructions Recorded Confirmed Type ALPRAZolam [Xanax] 0.25 mg PO HS PRN 06/02/14 11/28/21 History Atorvastatin [Lipitor] 20 mg PO HS 06/02/14 11/28/21 History Cholecalciferol [Vitamin D3] 2,000 unit PO DAILY 06/02/14 11/28/21 History Iron(Unknown Dose) 325 mg PO DAILY 06/02/14 11/28/21 History Apixaban [Eliquis] 2.5 mg PO BID 11/12/21 11/28/21 History Atorvastatin [Lipitor] 40 mg PO HS 11/12/21 11/28/21 History Clopidogrel [Plavix] 75 mg PO DAILY 11/12/21 11/28/21 History Dicyclomine [Bentyl] 20 mg PO BID 11/12/21 11/28/21 History Montelukast [Singulair] 10 mg PO DAILY 11/12/21 11/28/21 History Pantoprazole [Protonix] 40 mg PO DAILY 11/12/21 11/28/21 History lisinopriL [Zestril] 5 mg PO BID 11/12/21 11/28/21 History Allergies Allergy/AdvReac Type Severity Reaction Status Date / Time alcohol Allergy Severe Swelling Verified 11/28/21 07:27 of throat and lips morphine Allergy Unknown Passed Out Verified 11/28/21 07:27 Objective - Vital Signs Vital signs: Vital Signs Temp 97.5 F L 11/13/23 07:49 Pulse 70 11/13/23 07:49 Resp 16 11/13/23 07:49 BP 133/75 11/13/23 07:49 Pulse Ox FiO2 Intake & Output 11/12/23 11/13/23 11/13/23 18:59 06:59 18:59 Weight 54.431 kg - Constitutional General appearance: Present: cooperative - EENT Eyes: Present: EOMI - Neck Neck: Present: normal ROM - Respiratory Respiratory: bilateral: CTA - Cardiovascular Heart sounds: normal: S1, S2 - Integumentary Integumentary: Present: normal turgor - Psychiatric Psychiatric: Present: A&O x's 3, appropriate affect, intact judgment & insight - Additional findings Additional findings: Breast Exam: BRA; 44C; asymmetry related to prior left breast lumpectomy Inspection: Asymmetry of the breast related to prior left breast lumpectomy Palpation: Right breast: Well-healed scar from prior lumpectomy, multi-positional exam fibrocystic changes no dominant masses or nodules of concern, biopsy changes, no hematoma and no infection Right axilla: No adenopathy of concern Left breast: Postop and radiation changes, no dominant masses or nodules of concern Left axilla: No adenopathy of concern Assessment and Plan Assessment: Impression: kidney stones ischemic colitis COPD Edge's esophagus right breast DCIS no recurrence left breast stage I invasive ductal cancer no recurrence Bilateral mammogram 11-05-2023/BI-RADS 4 microcalcifications of concern right breast, no lesions of concern left breast Plan: Right breast mammogram abnormal microcalcifications/radial biopsy DCIS questionable microinvasion Case presented at tumor board/results discussed with the patient and her daughter CC: Dr. Alban Wong Objective - Vital Signs Vital signs: Intake & Output 11/26/23 11/27/23 11/27/23 18:59 06:59 18:59 Weight 54.431 kg
[2023-11-27 12:54] VITALS: BP 139/92; PULSE 83; RESP 17; TEMP 98.3
== END ==
LOC: WWCWWP 12:10
PROVIDERS: ATTEND Surgery
DX: C50.912 Malignant neoplasm of unspecified site of left female breast (principal); N20.0 Calculus of kidney; K55.9 Vascular disorder of intestine, unspecified; K22.70 Barrett's esophagus without dysplasia; J44.9 Chronic obstructive pulmonary disease, unspecified; Z17.1 Estrogen receptor negative status [ER-]; Z80.3 Family history of malignant neoplasm of breast; Z87.891 Personal history of nicotine dependence; Z92.3 Personal history of irradiation; Z88.5 Allergy status to narcotic agent; Z88.8 Allergy status to other drugs, medicaments and biological substances

== ENCOUNTER → 2023-12-24 | Outpatient (CLI) | payer MEDICARE ==
--- NOTE | 2023-12-24 14:40 | P.PN ---
Subjective Progress Note Date: 12/24/23 Principal diagnosis: right breast DCIS, suspicious for microinvasion Subjective Progress Note Date: 11/27/23 Principal diagnosis: 11-27-23 Principal diagnosis: abnormal right breast mammogram Initialization Date: 05/22/23 15:38 Pearl is an 88-year-old white female who underwent a bilateral mammogram on 11-05-2023 this revealed postsurgical and posttreatment changes of both breast. She had chronic lateral subareolar nodular asymmetries on the right. In the right breast approximately 12 1 o'clock position located behind the lumpectomy scar there were new group of heterogeneous microcalcifications for which tissue sampling was recommended. Otherwise no changes of concern were noted. The patient underwent a left breast lumpectomy approximately [address] Shin. 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 She was treated with radiation therapy and completed a 5-year course of antihormone therapy. A right breast core biopsy was done which revealed DCIS on 11-28-2021. She underwent a lumpectomy on 12-24-2021. All margins were negative. She was ER negative [place] negative. Patient lost 20 pounds recently and on her last visit was complaining of wrinkles in her arms. She does not feel anything of concern in her breast. Bilateral mammogram on 11-05-2023 the recommendation was for a right breast stereotactic core biopsy. This was performed on 11-13-2023. Stero right biopsy done on 11-13-23 DCIS suspecious for microinvasion ER low (+) AL (-) She did not have genetic testing done. hormones: none BCP: none caffiene: none nicotine: stopped 33 years ago, used to smoke 1 PPD for about 20 years Family History: patient: left breast cancer materanl aunt: breast cancer Hormonal History: menarche: 14 , breast fed: no, age at first : 22 menopause: 51 Surgical History: heart valve replacement 2013 left breast lumpectomy 2013 carotid stint (eliquis and plavix) hysterectomy no cancer, left ovaries right breast lumpectomy Medical History: kidney stones ischemic colitis COPD Edge's esophagus Social History: nicotine: stopped 33 years ago alcohol: none drugs:none - Constitutional Constitutional: Denies chills, Denies fever - EENT Comment: cataract surgery Eyes: denies blurred vision, denies pain Ears: deny: decreased hearing, tinnitus Ears, nose, mouth and throat: Denies headache, Denies sore throat - Breasts Breasts: bilateral: as per HPI - Cardiovascular Cardiovascular: Reports as per HPI - Respiratory Comment: COPD - Gastrointestinal Comment: ischemic colitis Gastrointestinal: Reports as per HPI - Genitourinary (Female) Genitourinary: Reports kidney stones - Menstruation Menstruation: Reports post hysterectomy - Musculoskeletal Musculoskeletal: Denies myalgias - Integumentary Integumentary: Denies pruritus, Denies rash - Neurological Neurological: Denies numbness, Denies weakness - Psychiatric Psychiatric: Denies anxiety, Denies depression - Endocrine Endocrine: Denies fatigue, Denies weight change - Hematologic/Lymphatic Comment: eliquis, plavix Hematologic/Lymphatic: Reports as per HPI - Allergic/Immunologic Allergic/Immunologic: Reports as per HPI Past Medical History Past Medical History: Asthma, COPD, Diabetes Mellitus, GERD/Reflux, Hyperlipidemia, Hypertension Additional Past Medical History / Comment(s): HX OF ANEMIA, BARRETTS ESOPHAGUS. History of Any Multi-Drug Resistant Organisms: None Reported Past Surgical History: Heart Catheterization, Hysterectomy Additional Past Surgical History / Comment(s): PARTIAL HYSTERECTOMY, AORTIC HEART VALVE (JUL 2013) Past Anesthesia/Blood Transfusion Reactions: No Reported Reaction Past Psychological History: No Psychological Hx Reported Past Alcohol Use History: None Reported Past Drug Use History: None Reported Medications and Allergies Home Medications Medication Instructions Recorded Confirmed Type ALPRAZolam [Xanax] 0.25 mg PO HS PRN 06/02/14 11/28/21 History Atorvastatin [Lipitor] 20 mg PO HS 06/02/14 11/28/21 History Cholecalciferol [Vitamin D3] 2,000 unit PO DAILY 06/02/14 11/28/21 History Iron(Unknown Dose) 325 mg PO DAILY 06/02/14 11/28/21 History Apixaban [Eliquis] 2.5 mg PO BID 11/12/21 11/28/21 History Atorvastatin [Lipitor] 40 mg PO HS 11/12/21 11/28/21 History Clopidogrel [Plavix] 75 mg PO DAILY 11/12/21 11/28/21 History Dicyclomine [Bentyl] 20 mg PO BID 11/12/21 11/28/21 History Montelukast [Singulair] 10 mg PO DAILY 11/12/21 11/28/21 History Pantoprazole [Protonix] 40 mg PO DAILY 11/12/21 11/28/21 History lisinopriL [Zestril] 5 mg PO BID 11/12/21 11/28/21 History Allergies Allergy/AdvReac Type Severity Reaction Status Date / Time alcohol Allergy Severe Swelling Verified 11/28/21 07:27 of throat and lips morphine Allergy Unknown Passed Out Verified 11/28/21 07:27 Objective - Constitutional General appearance: Present: cooperative - EENT Eyes: Present: EOMI ENT: Present: hearing grossly normal - Neck Neck: Present: normal ROM - Respiratory Respiratory: bilateral: CTA - Cardiovascular Rhythm: regular Heart sounds: normal: S1, S2 - Gastrointestinal General gastrointestinal: Present: soft - Integumentary Integumentary: Present: normal turgor - Musculoskeletal Musculoskeletal: Present: gait normal - Psychiatric Psychiatric: Present: A&O x's 3, appropriate affect, intact judgment & insight - Additional findings Additional findings: Breast Exam: BRA; 44C; asymmetry related to prior left breast lumpectomy Inspection: Asymmetry of the breast related to prior left breast lumpectomy Palpation: Right breast: Well-healed scar from prior lumpectomy, multi-positional exam fibrocystic changes no dominant masses or nodules of concern, biopsy changes, no hematoma and no infection Right axilla: No adenopathy of concern Left breast: Postop and radiation changes, no dominant masses or nodules of concern Left axilla: No adenopathy of concern Assessment and Plan Assessment: Impression: kidney stones ischemic colitis COPD Edge's esophagus right breast DCIS no recurrence left breast stage I invasive ductal cancer no recurrence Bilateral mammogram 11-05-2023/BI-RADS 4 microcalcifications of concern right breast, no lesions of concern left breast Plan: Right breast mammogram abnormal microcalcifications/stero biopsy DCIS questionable microinvasion Case presented at tumor board/results discussed with the patient and her daughter right breast needle localization lumpectomy, possible oncoplastic tissue transfer will stop eloquis as per cardiology The procedure discussed with the patient and her daughter. Risk include but are not limited to bleeding, infection, reaction to the anesthetic. If the margins were to be positive then further tissue acquisition may be necessary. They understand and wish to proceed. CC: Dr. Alban Wong
[2023-12-24 15:18] VITALS: BP 145/68; PULSE 91; RESP 17; TEMP 98.1
== END ==
LOC: WWCWWP 14:22
PROVIDERS: ATTEND Surgery
DX: R92.8 Other abnormal and inconclusive findings on diagnostic imaging of breast (principal); R92.0 Mammographic microcalcification found on diagnostic imaging of breast; C50.912 Malignant neoplasm of unspecified site of left female breast; J44.9 Chronic obstructive pulmonary disease, unspecified; N20.0 Calculus of kidney; K22.70 Barrett's esophagus without dysplasia; K55.9 Vascular disorder of intestine, unspecified; Z79.899 Other long term (current) drug therapy; Z88.8 Allergy status to other drugs, medicaments and biological substances; Z88.5 Allergy status to narcotic agent; Z80.3 Family history of malignant neoplasm of breast; Z17.1 Estrogen receptor negative status [ER-]; Z92.3 Personal history of irradiation; Z87.891 Personal history of nicotine dependence

== ENCOUNTER 2024-01-05 10:11 | Day surgery (SDC) | payer MEDICARE ==
[~2024-01-05 10:11] MED LIST changes: -ALPRAZolam 0.25 MG TAB ONE; -DEXAMETHASONE SOD PHOSPHATE 4 MG/ML 1 ML VIAL IV ONE; -HEPARIN SODIUM,PORCINE/PF 5,000 UNIT/0.5 ML SYRINGE SQ PRN; -HYDROmorphone 0.5 MG/0.5 ML SYRINGE IVP PRN; -LACTATED RINGERS 1,000 ML IV ONE; -LIDOCAINE 1% INJ 10MG/ML (20 ML MDV) SQ ONE; -LIDOCAINE 2% INJ 20 MG/ML (2 ML VIAL) ONE; -METOCLOPRAMIDE 5 MG/ML 2 ML VIAL IVP PRN; -ONDANSETRON 4 MG/2 ML VIAL IVP PRN; -PROPOFOL 10 MG/ML 20 ML VIAL IV ONE; -Pre Op ABX Message 1 EACH MISC MISCELLANE ONE; -SODIUM CHLORIDE 0.9% 100 ML with ceFAZolin 2,000 MG IV ONE; -SUCCINYLCHOLINE CHLORIDE 100 MG/5 ML SYR IV ONE; -ePHEDrine 50 MG/ML 1 ML VIAL ONE; -fentaNYL (PF) 50 MCG/ML 2 ML AMP ONE
[2024-01-05] MEDS: LACTATED RINGERS 1,000 ML IV ONE (11:10)
[2024-01-05] MEDS: ALPRAZolam 0.25 MG TAB ONE (11:48)
[2024-01-05] MEDS: ACETAMINOPHEN TAB 500 MG TAB PO PRN (11:48)
[2024-01-05] MEDS: LIDOCAINE 1% INJ 10MG/ML (20 ML MDV) SQ ONE ×4 (12:25→15:58)
[2024-01-05] MEDS: HEPARIN SODIUM,PORCINE 5,000 UNIT/ML 1 ML VIAL SQ PRN (13:07)
[2024-01-05] MEDS: ONDANSETRON 4 MG/2 ML VIAL IVP ONE (13:07)
[2024-01-05] MEDS: DEXAMETHASONE SOD PHOSPHATE 4 MG/ML 1 ML VIAL IV ONE (13:07)
[2024-01-05 13:16] LABS: Glucose,Whole Blood 115 mg/dL (70-110)
[2024-01-05] MEDS ORDERED: fentaNYL (PF) 50 MCG/ML 2 ML AMP ONE (14:26)
[2024-01-05] MEDS ORDERED: PROPOFOL 10 MG/ML 20 ML VIAL IV ONE (14:26)
[2024-01-05] MEDS ORDERED: WATER FOR INJECTION, STERILE 10 ML VIAL IV ONE (14:26)
[2024-01-05] MEDS ORDERED: HYDROmorphone (PF) 1 MG/ML ONE (14:26)
[2024-01-05] MEDS ORDERED: PHENYLEPHRINE-0.9% NACL SYG 1,000 MCG/10 ML SYRINGE ONE (14:26)
[2024-01-05] MEDS ORDERED: LIDOCAINE 1% INJ 10MG/ML (20 ML MDV) ONE (14:26)
[2024-01-05] MEDS ORDERED: ePHEDrine 50 MG/ML 1 ML VIAL ONE (14:26)
--- NOTE | 2024-01-05 15:53 | P.BCAON ---
Date of Procedure: 01/05/24 Preoperative Diagnosis: Right breast DCIS, possible microinvasion Postoperative Diagnosis: Same Procedure(s) Performed: Right breast needle localization lumpectomy Anesthesia: DANA Surgeon: Luli Bonner Estimated Blood Loss (ml): 5 IV fluids (ml): 600 Pathology: other (Right breast tissue) Condition: stable Disposition: same day Indications for Procedure: Biopsy-proven right breast ductal carcinoma in situ with possible microinvasion Operative Findings: Fibrofatty redundant breast tissue Description of Procedure: The patient was seen first in the radiology department where needle localization of the area of concern in the right breast was performed. The area of concern was bracketed. The patient was then brought to the operative suite. An incision was made and the tissue surrounding both wires was widely excised. The specimen was approximately 10 cm x 3 cm. This was the area surrounding the wires which were used for localization. Posteriorly dissection was onto the pectoralis muscle. The specimen was removed and painted for orientation. Radiograph revealed the area of concern had been removed. The wound was well irrigated. After we are sure that hemostasis was attained Surgicel in powder form was placed. Titanium clips were placed to julian the cavity. The deep tissues were closed using 3-0 Vicryl suture. The skin was closed using 4-0 Monocryl. Prior to closure a #10 LEESA drain was placed. This was secured using nylon suture. The patient tolerated the procedure in stable condition. All instrument and sponge counts were correct at the end of the case. 10 cc of 1% lidocaine was used to anesthetize the cavity.
--- NOTE | 2024-01-05 15:55 | P.DS ---
Providers Attending physician: Luli Bonner Primary care physician: Alban Wong Plan - Discharge Summary Discharge Rx Participant: No New Discharge Prescriptions: No Action Cholecalciferol [Vitamin D3] 4,000 unit PO QAM ALPRAZolam [Xanax] 0.25 mg PO TID PRN PRN Reason: Anxiety Omeprazole 20 mg PO BID Metoprolol Tartrate 25 mg PO QAM Cyanocobalamin (Vitamin B-12) [Vitamin B-12] 2,500 mg PO QAM Montelukast [Singulair] 10 mg PO HS Dicyclomine [Bentyl] 20 mg PO BID Atorvastatin [Lipitor] 40 mg PO HS lisinopriL [Zestril] 5 mg PO BID Apixaban [Eliquis] 5 mg PO BID metFORMIN HCL 500 mg PO QAM Aspirin [Adult Low Dose Aspirin EC] 81 mg PO QAM Discharge Medication List ALPRAZolam [Xanax] 0.25 mg PO TID PRN 06/02/14 [History] Cholecalciferol [Vitamin D3] 4,000 unit PO QAM 06/02/14 [History] Apixaban [Eliquis] 5 mg PO BID 11/12/21 [History] Atorvastatin [Lipitor] 40 mg PO HS 11/12/21 [History] Dicyclomine [Bentyl] 20 mg PO BID 11/12/21 [History] Montelukast [Singulair] 10 mg PO HS 11/12/21 [History] lisinopriL [Zestril] 5 mg PO BID 11/12/21 [History] Omeprazole 20 mg PO BID 12/20/21 [History] Metoprolol Tartrate 25 mg PO QAM 11/20/22 [History] metFORMIN HCL 500 mg PO QAM 11/20/22 [History] Aspirin [Adult Low Dose Aspirin EC] 81 mg PO QAM 12/31/23 [History] Cyanocobalamin (Vitamin B-12) [Vitamin B-12] 2,500 mg PO QAM 12/31/23 [History] Follow up Appointment(s)/Referral(s): Luli Bonner MD [STAFF PHYSICIAN] - 1-2 Days Activity/Diet/Wound Care/Special Instructions: Wear bra at all times May shower after [address] until seen by Dr. Bales Teach drain care drain and record twice daily and as needed Discharge Disposition: HOME SELF-CARE
[2024-01-05] MEDS: HYDROmorphone 0.5 MG/0.5 ML SYRINGE IVP PRN (16:26)
[2024-01-05] MEDS ORDERED: IPRATROPIUM-ALBUTEROL 3 ML NEB ONE (16:32)
[2024-01-05] MEDS: IPRATROPIUM 0.5 MG/2.5 ML NEBU INHALATION ONE (16:36)
[2024-01-05 16:40] VITALS: TEMP 97.7
[2024-01-05 16:51] LABS: Glucose,Whole Blood 158 mg/dL (70-110)
[2024-01-05 18:59] VITALS: BP 166/79; PULSE 87; RESP 15
--- NOTE | 2024-01-12 14:32 | MM ---
Pathology Description: Approach: Medial to Lateral Needle Type: 9 cm Kopan The procedure of needle localization with wire placement and then surgical excision was explained to the patient. Benefits, alternatives, and risks were discussed. An informed consent was then obtained. The shortest pathway for procedure was chosen. Shortest pathway was a medial approach. Bracket technique was utilized. The overlying skin was prepped and draped in usual sterile fashion. Lidocaine was used as anesthetic into the skin and subcutaneous tissue up to the level of area of concern. Posterior wire targeted the microclip with a 9 cm Kopan's needle. Anterior wire targeted the anterior extent of calcifications with a 7 cm Kopan's needle. They were placed via a medial approach under mammographic guidance. Subsequent 90 degrees mammogram show the needle to be in satisfactory position relative to the targeted area. At this point, wire was placed and the needle was withdrawn. The wires were fixed to patient's skin. Images were marked for surgeon. The patient tolerated the procedure well without any immediate complication. The patient was kept in the radiology department for short stay after the procedure and then taken to surgery for surgical excision. Both wires, targeted clip, previous surgical clips, and the generalized area of concern are all identified in specimen mammogram. The patient was kept in hospital for short stay after the procedure and then discharged home in stable condition. IMPRESSION: Successful, uncomplicated needle localization with wire placement (bracket technique) and surgical excision of biopsy-proven site of recurrence in the right breast, full pathology results to follow. Pathology Results: Result: Malignant, Ductal carcinoma in situ, comedo type. Pathology and radiology were reviewed. Findings are concordant. RIGHT BREAST, LUMPECTOMY: Focal high grade ductal carcinoma in situ (DCIS) with comedo necrosis and focal microcalcification (see surgical pathology cancer case summary and comment). Fibrotic and inflamed biopsy site change with remote hemorrhage and focal microcalcification adjacent to DCIS. All margins negative for malignancy. Overall Assessment: Malignant Management: Surgical Consultation of the right breast. Electronically signed and approved by: Eulogio Hart M.D. Radiologist
== END 2024-01-05 18:49 | disposition home or self-care (01) ==
LOC: OR 10:11
PROVIDERS: ATTEND Surgery
DX: D05.11 Intraductal carcinoma in situ of right breast (principal); I10 Essential (primary) hypertension; E78.5 Hyperlipidemia, unspecified; I48.91 Unspecified atrial fibrillation; J44.9 Chronic obstructive pulmonary disease, unspecified; E11.9 Type 2 diabetes mellitus without complications; K21.9 Gastro-esophageal reflux disease without esophagitis; F41.9 Anxiety disorder, unspecified; Z86.73 Personal history of transient ischemic attack (TIA), and cerebral infarction without residual deficits; Z79.01 Long term (current) use of anticoagulants; Z79.82 Long term (current) use of aspirin; Z79.84 Long term (current) use of oral hypoglycemic drugs; Z88.5 Allergy status to narcotic agent; Z88.8 Allergy status to other drugs, medicaments and biological substances
CPT/HCPCS: 19301; 88342; 88307; 88341; 76098; 19281; C1819 ×2; J1644; J1100; J0690; J2405; J2001; J3010; J1170 ×2; J2704; J2371

== ENCOUNTER → 2024-01-07 | Outpatient (CLI) | payer MEDICARE ==
[2024-01-07 11:13] VITALS: BP 134/55; PULSE 72; RESP 16; TEMP 97.6
--- NOTE | 2024-01-07 11:27 | P.BCPO ---
Progress Note - Text Progress Note Date: 01/07/24 Pearl is an 88 year old female status post a right breast lumpectomy on 02-05-24. Pathology is pending. She is doing well at this time. LEESA greater than 40 cc. Lungs: clear heart: S1S2 incision clean and dry Plan: follow up next week for LEESA removal
== END ==
LOC: WWCWWP 10:16
PROVIDERS: ATTEND Surgery
DX: Z90.89 Acquired absence of other organs (principal); Z88.8 Allergy status to other drugs, medicaments and biological substances; Z91.09 Other allergy status, other than to drugs and biological substances; Z87.891 Personal history of nicotine dependence

== ENCOUNTER → 2024-01-13 | Outpatient (CLI) | payer MEDICARE ==
--- NOTE | 2024-01-13 16:20 | P.BCPO ---
Progress Note - Text Progress Note Date: 01/13/24 01/07/24 Pearl is an 88 year old female status post a right breast lumpectomy on 02-05-24. Pathology DCIS 3mm all margins (-). She is doing well at this time. LEESA no output for three days. Lungs: clear heart: S1S2 incision clean and dry Plan: Removed, with removal there was some serous drainage which occurred. Copy of pathology report given to patient and [id number]. Patient is going to follow-up with radiation oncology. Patient is going to follow-up with medical oncology. Patient will follow-up here in 2 days. Post Op Education - Post Op Education Post Op Education Provided Date: 01/13/24 - Functional Assessment Performed?: Yes (arm abduction passed) Path Report - Was patient given path report? Path Report Date Given: 01/13/24
[2024-01-13 16:26] VITALS: BP 104/58; PULSE 58; RESP 17; TEMP 98
== END ==
LOC: WWCWWP 14:41
PROVIDERS: ATTEND Surgery
DX: Z48.817 Encounter for surgical aftercare following surgery on the skin and subcutaneous tissue (principal); Z85.3 Personal history of malignant neoplasm of breast; Z98.890 Other specified postprocedural states; Z88.5 Allergy status to narcotic agent; Z88.8 Allergy status to other drugs, medicaments and biological substances; Z87.891 Personal history of nicotine dependence

== ENCOUNTER → 2024-01-15 | Outpatient (CLI) | payer MEDICARE ==
--- NOTE | 2024-01-15 13:32 | P.CON ---
Consult Note - . Consult date: 01/15/24 Assessment/Plan:: 01/07/24 Pearl is an 88 year old female status post a right breast lumpectomy on 02-05-24. Pathology DCIS 3mm all margins (-). She is doing well at this time. LEESA Removed on last visit Lungs: clear heart: S1S2 incision clean and dry, seroma on today's examination Plan: Patient doing well at this time Follow-up in 2 weeks Appointment radiation oncology CC: Dr. Hema Wong
[2024-01-15 14:01] VITALS: BP 104/65; PULSE 72; RESP 16; TEMP 98.1
== END ==
LOC: WWCWWP 12:28
PROVIDERS: ATTEND Surgery
DX: Z48.817 Encounter for surgical aftercare following surgery on the skin and subcutaneous tissue (principal); L76.82 Other postprocedural complications of skin and subcutaneous tissue; Z85.3 Personal history of malignant neoplasm of breast; Z98.890 Other specified postprocedural states; Z88.5 Allergy status to narcotic agent; Z88.8 Allergy status to other drugs, medicaments and biological substances; Z87.891 Personal history of nicotine dependence

== ENCOUNTER → 2024-06-02 | Outpatient (CLI) | payer MEDICARE ==
[2024-06-02 11:50] VITALS: BP 106/65; PULSE 67; RESP 16; TEMP 98.1
--- NOTE | 2024-06-02 12:32 | P.PN ---
Subjective Progress Note Date: 06/02/24 Principal diagnosis: left breast IDC 2014, right breast DCIS 2021 and 202312/24/23 Principal diagnosis: right breast DCIS, suspicious for microinvasion Subjective Progress Note Date: 06-02-24 Principal diagnosis: left breast IDC by Dr. Enamorado 2014, [facility] right breast DCIS with lumpectomy 2021, recurrence and repeat lumpectomy 2023 Pearl is an 88-year-old white female who underwent a bilateral mammogram on 11-05-2023 this revealed postsurgical and posttreatment changes of both breast. She had chronic lateral subareolar nodular asymmetries on the right. In the ri ght breast approximately 12 1 o'clock position located behind the lumpectomy scar there were new group of heterogeneous microcalcifications for which tissue sampling was recommended. Otherwise no changes or concern were noted. The patient underwent a left breast lumpectomy approximately [address] Engle. 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 She was treated with radiation therapy and completed a 5-year course of antihormone therapy. A right breast core biopsy was done which revealed DCIS on 11-28-2021. She underwent a lumpectomy on 12-24-2021. All margins were negative. She was ER negative IN negative. She did not have any radiation therapy. A recurrence following a mammogram in October 2023. She underwent a right breast lumpectomy on 01-05-24 all margins (-) she was going to have hormone therapy with anastrozole however she was noted to have osteoporosis and the medical oncologist suggested that it would be better to have radiation therapy. She completed radiation therapy May 20, 2024. She does not feel anything of concern in her breast. Bilateral mammogram on 11-05-2023 the recommendation was for a right breast stereotactic core biopsy. This was performed on 11-13-2023. Stero right biopsy done on 11-13-23 DCIS suspicious for microinvasion ER low (+) IN (-) She did not have genetic testing done. repeat right breast lumpectomy on 01-05-24; She initially took an antihormone medication but she had a bone density done and it showed osteoporosis and she was taken off of the antihormone therapy. note Dr. Posey medical oncology 02-02-24, stopped antihormone but told to see radiation oncology, and she had radiation two weeks ago every day for 5 days. Finished May 16, 2024. she was also noted to have anemia, treated with vitamin D, and B12. Her carburetor expert is following anemia, blood work done two days ago at his office. Will request these results. hormones: none BCP: none caffiene: none nicotine: stopped 33 years ago, used to smoke 1 PPD for about 20 years Family History: patient: left breast cancer materanl aunt: breast cancer Hormonal History: menarche: 14 , breast fed: no, age at first : 22 menopause: 51 Surgical History: heart valve replacement 2012 left breast lumpectomy 2013 carotid stint (eliquis and plavix) hysterectomy no cancer, left ovaries right breast lumpectomy, repeat lumpectomy in 2021 and 2023 Medical History: kidney stones ischemic colitis COPD Edge's esophagus anemia Social History: nicotine: stopped 33 years ago alcohol: none drugs:none - Constitutional Constitutional: Denies chills, Denies fever - EENT Comment: cataract surgery Eyes: denies blurred vision, denies pain Ears: deny: decreased hearing, tinnitus Ears, nose, mouth and throat: Denies headache, Denies sore throat - Breasts Breasts: bilateral: as per HPI - Cardiovascular Cardiovascular: Reports as per HPI - Respiratory Comment: COPD - Gastrointestinal Comment: ischemic colitis Gastrointestinal: Reports as per HPI - Genitourinary (Female) Genitourinary: Reports kidney stones - Menstruation Menstruation: Reports post hysterectomy - Musculoskeletal Musculoskeletal: Denies myalgias - Integumentary Integumentary: Denies pruritus, Denies rash - Neurological Neurological: Denies numbness, Denies weakness - Psychiatric Psychiatric: Denies anxiety, Denies depression - Endocrine Endocrine: Denies fatigue, Denies weight change - Hematologic/Lymphatic Comment: eliquis, plavix Hematologic/Lymphatic: Reports as per HPI - Allergic/Immunologic Allergic/Immunologic: Reports as per HPI Past Medical History Past Medical History: Asthma, COPD, Diabetes Mellitus, GERD/Reflux, Hyperlipidemia, Hypertension Additional Past Medical History / Comment(s): HX OF ANEMIA, BARRETTS ESOPHAGUS. History of Any Multi-Drug Resistant Organisms: None Reported Past Surgical History: Heart Catheterization, Hysterectomy Additional Past Surgical History / Comment(s): PARTIAL HYSTERECTOMY, AORTIC HEART VALVE (JUL 2013) Past Anesthesia/Blood Transfusion Reactions: No Reported Reaction Past Psychological History: No Psychological Hx Reported Past Alcohol Use History: None Reported Past Drug Use History: None Reported Medications and Allergies Home Medications Medication Instructions Recorded Confirmed Type ALPRAZolam [Xanax] 0.25 mg PO HS PRN 06/02/14 11/28/21 History Atorvastatin [Lipitor] 20 mg PO HS 06/02/14 11/28/21 History Cholecalciferol [Vitamin D3] 2,000 unit PO DAILY 06/02/14 11/28/21 History Iron(Unknown Dose) 325 mg PO DAILY 06/02/14 11/28/21 History Apixaban [Eliquis] 2.5 mg PO BID 11/12/21 11/28/21 History Atorvastatin [Lipitor] 40 mg PO HS 11/12/21 11/28/21 History Clopidogrel [Plavix] 75 mg PO DAILY 11/12/21 11/28/21 History Dicyclomine [Bentyl] 20 mg PO BID 11/12/21 11/28/21 History Montelukast [Singulair] 10 mg PO DAILY 11/12/21 11/28/21 History Pantoprazole [Protonix] 40 mg PO DAILY 11/12/21 11/28/21 History lisinopriL [Zestril] 5 mg PO BID 11/12/21 11/28/21 History Allergies Allergy/AdvReac Type Severity Reaction Status Date / Time alcohol Allergy Severe Swelling Verified 11/28/21 07:27 of throat and lips morphine Allergy Unknown Passed Out Verified 11/28/21 07:27 Objective - Vital Signs Vital signs: Vital Signs Temp 98.1 F 06/02/24 11:48 Pulse 67 06/02/24 11:48 Resp 16 06/02/24 11:48 BP 106/65 06/02/24 11:48 Pulse Ox 98 06/02/24 11:48 FiO2 Intake & Output 06/01/24 06/02/24 06/02/24 18:59 06:59 18:59 Weight 54.885 kg - Constitutional General appearance: Present: cooperative - EENT Eyes: Present: EOMI ENT: Present: hearing grossly normal - Neck Neck: Present: normal ROM - Respiratory Respiratory: bilateral: CTA - Cardiovascular Rhythm: regular Heart sounds: normal: S1, S2 - Integumentary Integumentary: Present: normal turgor - Musculoskeletal Musculoskeletal: Present: gait normal - Psychiatric Psychiatric: Present: A&O x's 3, appropriate affect, intact judgment & insight - Additional findings Additional findings: Breast Exam: BRA; 44C; asymmetry related to prior left breast lumpectomy Inspection: Asymmetry of the breast related to prior left breast lumpectomy Palpation: Right breast: Well-healed scar from prior lumpectomy, multi-positional exam fib rocystic changes no dominant masses or nodules of concern Right axilla: No adenopathy of concern Left breast: Postop and radiation changes, no dominant masses or nodules of concern Left axilla: No adenopathy of concern Assessment and Plan Assessment: Impression: kidney stones ischemic colitis COPD Edge's esophagus left breast stage I invasive ductal cancer no recurrence Bilateral mammogram 11-05-2023/BI-RADS 4 microcalcifications of concern for which biopsy revealed DCIS recurrence Plan: Bilateral mammogram October 2024 with appointment at that time Continue to follow with primary care doctor regarding anemia Greater than 20 minutes for the patient visit, chart review, patient examination, and discussion of treatment and options including stopping hormone therapy, osteoporesis, and will attempt to obtain most recent blood work. CC: Mary Beth Wong
== END ==
LOC: WWCWWP 11:04
PROVIDERS: ATTEND Surgery

== ENCOUNTER → 2024-11-04 | Outpatient (CLI) | payer MEDICARE ==
--- NOTE | 2024-11-04 11:33 | MM ---
Reason for Exam: Follow-up at short interval from prior study. Last screening mammogram was performed 12 month(s) ago. Patient History: Menarche at age 13. First Full-Term at age 22. Hysterectomy at age 62. Postmenopausal. Breast cancer, right, age 86. Breast cancer, left, age 78. Breast cancer, right, age 88. Previous chest radiation therapy at age 78. 01/05/2024, Lumpectomy on the Right side. 01/05/2024, Malignant MG pre op needle loc RT on the right side. 11/13/2023, Malignant MG stereo VAD BX RT on the right side. 12/24/2021, Lumpectomy on the Right side. 2013, Lumpectomy on the Left side. 12/24/2021, Malignant Core Biopsy on the right side. 11/28/2021, Malignant Core Biopsy on the right side. 06/05/2014, Malignant Core Biopsy on the left side. 05/24/2014, Malignant Core Biopsy on the left side. 2013, Radiation Therapy on the left side. Maternal aunt had breast cancer, age 60. Tissue Density: The breasts are heterogeneously dense, which may obscure small masses. Findings: Analyzed By CAD. There is a postlumpectomy distortion seen bilaterally. Dystrophic calcifications noted. No evidence for mass. Traumatic oil cysts noted right breast. No suspicious microcalcifications seen. Overall Assessment: Benign, BI-RAD 2 Management: Diagnostic Mammogram of both breasts in 1 year. . Results were given to the patient verbally at the time of exam. Patient should continue monthly self-breast exams. A clinical breast exam by your physician is recommended on an annual basis. This exam should not preclude additional follow-up of suspicious palpable abnormalities. Note on Pearl scores and lifetime risk: 1. A Pearl score greater than 3% is considered moderate risk. If this is the case, consider specialist referral to assess eligibility for a risk reducing agent. 2. If overall lifetime risk for the development of breast cancer is 20% or higher, the patient may qualify for future screening with alternating mammogram and breast MRI. [facility], , 11/04/2024 11:30 AM. Electronically signed and approved by: Ariel Grimes M.D. Radiologis
== END | disposition home or self-care (01) ==
LOC: RADMAMWWP 10:38
PROVIDERS: ATTEND Surgery
DX: R92.333 Mammographic heterogeneous density, bilateral breasts (principal); Z85.3 Personal history of malignant neoplasm of breast; Z80.3 Family history of malignant neoplasm of breast; Z78.0 Asymptomatic menopausal state
CPT/HCPCS: 77062; 77066

== ENCOUNTER → 2024-11-10 | Outpatient (CLI) | payer MEDICARE ==
[2024-11-10 11:03] VITALS: BP 132/60; PULSE 77; RESP 17; TEMP 97.4
--- NOTE | 2024-11-10 11:23 | P.PN ---
Subjective Progress Note Date: 11/10/24 11-10-34 Principal diagnosis: left breast IDC 2014, right breast DCIS 2021 and 202312/24/23 Principal diagnosis: right breast DCIS, suspicious for microinvasion Subjective Progress Note Date: 06-02-24 Principal diagnosis: left breast IDC by Dr. Enamorado 2014, [facility] right breast DCIS with lumpectomy 2021, recurrence and repeat lumpectomy 2023 Pearl is an 88-year-old white female who underwent a bilateral mammogram on 11-05-2023 this revealed postsurgical and posttreatment changes of both breast. She had chronic lateral subareolar nodular asymmetries on the right. In the right breast approximately 12 1 o'clock position located behind the lumpectomy scar there were new group of heterogeneous microcalcifications for which tissue sampling was recommended. Otherwise no changes or concern were noted. The patient underwent a left breast lumpectomy approximately [address] Engle. 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 She was treated with radiation therapy and completed a 5-year course of antihormone therapy. A right breast core biopsy was done which revealed DCIS on 11-28-2021. She underwent a lumpectomy on 12-24-2021. All margins were negative. She was ER negative [place] negative. She did not have any radiation therapy. A recurrence following a mammogram in October 2023. She underwent a right breast lumpectomy on 01-05-24 all margins (-) she was going to have hormone therapy with anastrozole however she was noted to have osteoporosis and the medical oncologist suggested that it would be better to have radiation therapy. She completed radiation therapy May 20, 2024. She does not feel anything of concern in her breast. Bilateral mammogram on 11-05-2023 the recommendation was for a right breast stereotactic core biopsy. This was performed on 11-13-2023. Stero right biopsy done on 11-13-23 DCIS suspicious for microinvasion ER low (+) RI (-) She did not have genetic testing done. repeat right breast lumpectomy on 01-05-24; She initially took an antihormone medication but she had a bone density done and it showed osteoporosis and she was taken off of the antihormone therapy. note Dr. Posey medical oncology 02-02-24, stopped antihormone but told to see radiation oncology, and she had radiation two weeks ago every day for 5 days. Finished May 16, 2024. she was also noted to have anemia, treated with vitamin D, and B12. Her primary therapist is following anemia, blood work done two days ago at his office. Will request these results. 11-10-24 89 year old female status post left breast lumpectomy for IDC stage I 2014, followed by radiation adn 5 year course of anti hormone therapy right breast DCIS 2021 all margins (-) no radidtion or hormone therapy, ER and Pr- fsecond right breast DCIS 2023 lumpectomy all margins (-) She initially took an antihormone medication but she had a bone density done and it showed osteoporosis and she was taken off of the antihormone therapy. note Dr. Posey medical oncology 02-02-24, stopped antihormone but told to see radiation oncology, and she had radiation two weeks ago every day for 5 days. Finished May 16, 2024. she was also noted to have anemia, treated with vitamin D, and B12. Her primary therapist is following anemia, blood work done two days ago at his office. Will request these results. Note Dr. Benavidez 08-11-24 medicine reviewed admitted to [facility] with anemia Hgb 5.3, where she received 2 units of PRBC; (most recent Hgb 10 as per patient ) Note Radiation Oncology 06-17-24 reviewed Bilateral mammogram 11-04-24 BIRAD 2 hormones: none BCP: none caffiene: none nicotine: stopped 33 years ago, used to smoke 1 PPD for about 20 years Family History: patient: left breast cancer maternal aunt: breast cancer Hormonal History: menarche: 14 , breast fed: no, age at first : 22 menopause: 51 Surgical History: heart valve replacement 2013 left breast lumpectomy 2014 carotid stint (eliquis and plavix) hysterectomy no cancer, left ovaries right breast lumpectomy, repeat lumpectomy in 2021 and 2023 Medical History: kidney stones ischemic colitis COPD Edge's esophagus anemia admitted to hospital ? retinal detachment Social History: nicotine: stopped 33 years ago alcohol: none drugs:none - Constitutional Constitutional: Denies chills, Denies fever - EENT Comment: cataract surgery Eyes: denies blurred vision, denies pain Ears: deny: decreased hearing, tinnitus Ears, nose, mouth and throat: Denies headache, Denies sore throat - Breasts Breasts: bilateral: as per HPI - Cardiovascular Cardiovascular: Reports as per HPI - Respiratory Comment: COPD - Gastrointestinal Comment: ischemic colitis Gastrointestinal: Reports as per HPI - Genitourinary (Female) Genitourinary: Reports kidney stones - Menstruation Menstruation: Reports post hysterectomy - Musculoskeletal Musculoskeletal: Denies myalgias - Integumentary Integumentary: Denies pruritus, Denies rash - Neurological Neurological: Denies numbness, Denies weakness - Psychiatric Psychiatric: Denies anxiety, Denies depression - Endocrine Endocrine: Denies fatigue, Denies weight change - Hematologic/Lymphatic Comment: eliquis, plavix Hematologic/Lymphatic: Reports as per HPI - Allergic/Immunologic Allergic/Immunologic: Reports as per HPI Past Medical History Past Medical History: Asthma, COPD, Diabetes Mellitus, GERD/Reflux, Hyperlipidemia, Hypertension Additional Past Medical History / Comment(s): HX OF ANEMIA, BARRETTS ESOPHAGUS. History of Any Multi-Drug Resistant Organisms: None Reported Past Surgical History: Heart Catheterization, Hysterectomy Additional Past Surgical History / Comment(s): PARTIAL HYSTERECTOMY, AORTIC HEART VALVE (JUL 2013) Past Anesthesia/Blood Transfusion Reactions: No Reported Reaction Past Psychological History: No Psychological Hx Reported Past Alcohol Use History: None Reported Past Drug Use History: None Reported Medications and Allergies Home Medications Medication Instructions Recorded Confirmed Type ALPRAZolam [Xanax] 0.25 mg PO HS PRN 06/02/14 11/28/21 History Atorvastatin [Lipitor] 20 mg PO HS 06/02/14 11/28/21 History Cholecalciferol [Vitamin D3] 2,000 unit PO DAILY 06/02/14 11/28/21 History Iron(Unknown Dose) 325 mg PO DAILY 06/02/14 11/28/21 History Apixaban [Eliquis] 2.5 mg PO BID 11/12/21 11/28/21 History Atorvastatin [Lipitor] 40 mg PO HS 11/12/21 11/28/21 History Clopidogrel [Plavix] 75 mg PO DAILY 11/12/21 11/28/21 History Dicyclomine [Bentyl] 20 mg PO BID 11/12/21 11/28/21 History Montelukast [Singulair] 10 mg PO DAILY 11/12/21 11/28/21 History Pantoprazole [Protonix] 40 mg PO DAILY 11/12/21 11/28/21 History lisinopriL [Zestril] 5 mg PO BID 11/12/21 11/28/21 History Allergies Allergy/AdvReac Type Severity Reaction Status Date / Time alcohol Allergy Severe Swelling Verified 11/28/21 07:27 of throat and lips morphine Allergy Unknown Passed Out Verified 11/28/21 07:27 Objective - Vital Signs Vital signs: Intake & Output 11/09/24 11/10/24 11/10/24 18:59 06:59 18:59 Weight 55.338 kg - Constitutional General appearance: Present: cooperative - EENT Eyes: Present: EOMI ENT: Present: hearing grossly normal - Neck Neck: Present: normal ROM - Respiratory Respiratory: bilateral: CTA - Cardiovascular Rhythm: regular Heart sounds: normal: S1, S2 - Integumentary Integumentary: Present: normal turgor - Musculoskeletal Musculoskeletal: Present: gait normal - Psychiatric Psychiatric: Present: A&O x's 3, appropriate affect, intact judgment & insight - Additional findings Additional findings: Breast Exam: BRA; 44C; asymmetry related to prior left breast lumpectomy Inspection: Asymmetry of the breast related to prior left breast lumpectomy Palpation: Right breast: Well-healed scar from prior lumpectomy, multi-positional exam fibrocystic changes no dominant masses or nodules of concern Right axilla: No adenopathy of concern Left breast: Postop and radiation changes, no dominant masses or nodules of concern Left axilla: No adenopathy of concern Assessment and Plan Assessment: Impression: kidney stones ischemic colitis COPD Edge's esophagus left breast stage I invasive ductal cancer no recurrence Bilateral mammogram 11-05-2023/BI-RADS 4 microcalcifications of concern for which biopsy revealed DCIS recurrence bilateral mammogram 11-04-24 BIRAD 2 Plan: Bilateral mammogram October 2025 with appointment at that time Continue to follow with primary care doctor regarding anemia follow up in 6 months Greater than 20 minutes for the patient visit, chart review, patient examination, and discussion of treatment and options including stopping hormone therapy, osteoporesis, CC: Mary Beth Wong
== END ==
LOC: WWCWWP 10:44
PROVIDERS: ATTEND Surgery
DX: C50.912 Malignant neoplasm of unspecified site of left female breast (principal); N20.0 Calculus of kidney; K55.9 Vascular disorder of intestine, unspecified; J44.9 Chronic obstructive pulmonary disease, unspecified; K22.70 Barrett's esophagus without dysplasia; I85.00 Esophageal varices without bleeding; Z91.048 Other nonmedicinal substance allergy status; Z87.891 Personal history of nicotine dependence; Z88.5 Allergy status to narcotic agent